=== PATIENT | male | born 1945 | race Caucasian/White ===

== ENCOUNTER 2016-03-29 20:50 | Emergency (ER) | payer OTHER ==
[~2016-03-29] VITALS: Ht 188 cm; Wt 112.9 kg
[~2016-03-29 20:50] MED LIST: ASPI-435 PO; BTP80 PO; CMD/25 PO; HYDR25TA4 PO; LISI-461 PO; MONT1TAB3 PO; MULT-506 PO; PRAV20TA PO; WARF5TAB90 PO
[2016-03-29 20:58] VITALS: TEMP 36.6; Ht 188 cm; Wt 112.9 kg
--- NOTE | 2016-03-29 21:25 | EMERGENCY ROOM VISIT NOTE ---
History Report prepared by Cade: Keerthi Osorio Under the Supervision of: Dr. David Boo M.D. First contact with patient: 21:04 Chief Complaint: SWELLING TO EXTREMITY Stated Complaint: PULLED RT BICEP, HEMATOMA/SWELLING NOT STOPPING History of Present Illness The patient is a 70 year old male who presents to the Emergency Room with complaints of worsening swelling to his right upper extremity for the past week. The patient states, "I tore the two heads of my bicep apart." He extended his arm and twisted to catch a falling cat and injured his arm. Since that time he has been having pain around his left shoulder. He was using the R.I.C.E. method, which seemed to be helping. The patient states that 3 nights ago he thinks that he slept on his arm funny because he has been having increased pain , swelling, and bruising since then. He is still using R.I.C.E. He denies any pain with movement of the arm and states that it is just the swelling of his arm that is painful and bothering him. He rates his current pain as a 2/10 in severity. He has full range of motion of the right wrist and hand. The patient is on Coumadin for a-fib. He has not had his INR checked since the incident occurred. Source of History: patient Onset: 1 week ago Position: arm (right) Symptom Intensity: 2/10 Quality: other (swelling) Timing: worsening Modifying Factors (Worsening): other (swelling) Modifying Factors (Relieving): other (R.I.C.E.) Review of Systems See HPI for pertinent positives & negatives. A total of 10 systems reviewed and were otherwise negative. Past Medical & Surgical Medical Problems: (1) ATRIAL FIBRILLATION (2) Dyslipidemia (3) History of asthma (4) History of cardioversion (5) History of gastroesophageal reflux (GERD) (6) History of renal stone (7) HYPERLIPIDEMIA NEC/NOS (8) HYPERTENSION NOS (9) Osteoarthritis of left hip Surgical Problems: (1) History of appendectomy (2) History of cataract surgery (3) History of rotator cuff surgery (4) History of tonsillectomy Family History No pertinent history stated. Social History Smoking Status: Never Smoker Alcohol Use: occasionally Marital Status: single Occupation Status: retired Current/Historical Medications Scheduled Hydrochlorothiazide (Hctz), 25 MG PO DAILY Lisinopril (Lisinopril), 10 MG PO QAM Montelukast Sodium (Singulair), 10 MG PO DAILY Pravastatin Sodium (Pravachol), 40 MG PO DAILY Sotalol HCl (Sotalol HCl), 80 MG PO BID Warfarin Sod (Coumadin), 2.5 MG PO 4XWK Warfarin Sodium (Coumadin), 5 MG PO 3XWK Allergies Coded Allergies: Shellfish (Verified Allergy, Unknown, 03/30/16) Physical Exam Vital Signs Date Time Temp Pulse Resp B/P Pulse Ox O2 Delivery O2 Flow Rate FiO2 03/30/16 00:48 82 22 122/86 93 03/29/16 23:03 81 16 143/92 95 Room Air 03/29/16 20:58 36.6 79 18 135/97 95 Room Air Physical Exam GENERAL: Patient is well appearing and in no acute distress. HEENT: No acute trauma, normocephalic atraumatic, mucous membranes moist, no nasal congestion, no scleral icterus. NECK: No stridor, no adenopathy, no meningismus, trachea is midline. LUNGS: No dyspnea. Clear to auscultation and equal bilaterally. No wheeze, no rhonchi. HEART: Regular rate and rhythm. No murmurs, rubs, gallops appreciated. ABDOMEN: Soft, nontender, bowel sounds positive, no masses appreciated, no peritonitis. BACK: No midline tenderness, no CVA tenderness EXTREMITIES: There is a large ecchymotic area of the right upper extremity from the shoulder to the elbow, tender to palpation with ball of biceps in the upper humerus, firm/tender though not consistent with compartment syndrome, decreased strength with flexion at the elbow but FROM. NEUROLOGIC: Alert and oriented, no acute motor or sensory deficits, no focal weakness, cranial nerves grossly intact. SKIN: No rash, no jaundice, no diaphoresis. Medical Decision & Procedures ER Provider Diagnostic Interpretation: Radiology results and stated below per my review and radiologist interpretation: US EXTREMITY: At the right medial upper arm, there is a 11.1 x 3.8 x 6.9 cm heterogeneous lesion with regions of hyperechogenicity, compatible with hematoma in the appropriate clinical setting, likely intramuscular. No evidence of deep vein thrombosis, but evaluation of brachial veins limited by hematoma. Radiologist: David Murrell MD Laboratory Results 03/29/16 21:30 03/29/16 21:30 Test 03/29/16 21:30 Red Blood Count 4.85 M/uL (4.7-6.1) Mean Corpuscular Volume 88.9 fL (80-100) Mean Corpuscular Hemoglobin 32.0 pg (25-34) Mean Corpuscular Hemoglobin Concent 36.0 g/dl (32-36) RDW Standard Deviation 42.3 fL (36.4-46.3) RDW Coefficient of Variation 13.1 % (11.5-14.5) Mean Platelet Volume 10.5 fL (7.4-10.4) Prothrombin Time 22.4 SECONDS (9.0-12.0) Prothromb Time International Ratio 2.0 (0.9-1.1) Activated Partial Thromboplast Time 40.3 SECONDS (21.0-31.0) Partial Thromboplastin Ratio 1.5 Anion Gap 12.0 mmol/L (3-11) Est Creatinine Clear Calc Drug Dose 92.8 ml/min Estimated GFR () 89.1 Estimated GFR (Non- 76.8 BUN/Creatinine Ratio 30.1 (10-20) Calcium Level 8.8 mg/dl (8.5-10.1) Total Creatine Kinase 152 U/L (39-308) Laboratory results as reviewed by me. Medications Administered Medications (Trade) Dose Ordered Sig/Vinny Route Start Time Stop Time Status Last Admin Dose Admin Phytonadione (Mephyton Tab) 2.5 mg NOW STAT PO 03/30/16 00:09 03/30/16 00:10 DC 03/30/16 00:25 2.5 MG ED Course 2103: The patient was evaluated in room B3B. A complete history and physical exam was performed. 0002: I reassessed the patient at this time. He is doing well. 0009: Phytonadione 2.5 mg PO 0038: I reassessed the patient at this time. He is feeling better and resting comfortably. I discussed the results and treatment plan with the patient. I answered all pertaining questions that he had. He expressed understanding and verbalized agreement. The patient will be discharged home. He will follow up with his hemmer automatic on Tuesday and will discuss how long he should be off of his Coumadin. He will set up follow-up as an outpatient with orthopedics. Medical Decision Very pleasant 70 yr old male who by history tore right biceps last week. Still with ROM thus not complete tear. On coumadin and continued to take even after tear thus bleeding in to right upper arm. Large hematoma noted on US though no evidence DVT. No evidence that this is infected at this time. It is not compartment syndrome. No n/v compromise distally. Afib is reason for coumadin thus with increasing hematoma I feel that we are at point where he needs to stop coumadin and I will begin reversal with low dose Vit K. He will follow up with Cards in 2 days already and I have asked Case Management to facilitate follow up with Ortho. I think urgent ortho reasonable as given the size of the hematoma I would like their input on if it may need to be drained, though with his currently elevated INR and no compartment syndrome I do not feel this is something that would need to happen this evening. If no further expansion of hematoma will likely not need surgery though would like their input non-the less. He notes previously seeing Dr Christianson for left shoulder issues. Impression Primary Impression: Traumatic hematoma of right upper arm Additional Impression: Tear of right biceps muscle Scribe Attestation The scribe's documentation has been prepared under my direction and personally reviewed by me in its entirety. I confirm that the note above accurately reflects all work, treatment, procedures, and medical decision making performed by me. Departure Information Dispostion Home / Self-Care Referrals Toro Gonzalez M.D.([facility]) (PCP) Willie Christianson, DO Patient Instructions [facility] Additional Instructions Follow up with Ortho in next 1 to 2 days. Follow up with your Doctor Podiatric Medicine on as planned and further discuss how long you should be off the Coumadin. Return immediately if pain, increased welling, inability to use arm, shortness of breath, fevers or other concerns. Stop your Coumadin until told you can restart by Orthopedics or Doctor Podiatric Medicine. Problem Qualifiers Primary Impression: Traumatic hematoma of right upper arm Encounter type: initial encounter Qualified Codes: S40.021A - Contusion of right upper arm, initial encounter Additional Impression: Tear of right biceps muscle Encounter type: initial encounter Qualified Codes: S46.111A - Strain of muscle, fascia and tendon of long head of biceps, right arm, initial encounter
[2016-03-29 21:48] LABS: HEMATOCRIT 43.1 % (42-52); MEAN CELL VOLUME 88.9 fL (80-100); MEAN PLATELET VOLUME 10.5 fL (7.4-10.4); PLATELET COUNT 196 K/uL (130-400); RED BLOOD COUNT 4.85 M/uL (4.7-6.1); WHITE BLOOD COUNT 11.01 K/uL (4.8-10.8)
[2016-03-29 21:52] LABS: PARTIAL THROMBOPLASTIN RATIO 1.5; PROTHROMBIN TIME (PATIENT) 22.4 SECONDS (9.0-12.0)
[2016-03-29 22:00] LABS: BUN/CREATININE RATIO 30.1 (10-20); CALCIUM 8.8 mg/dl (8.5-10.1); CREATININE 0.99 mg/dl (0.60-1.40); POTASSIUM 3.6 mmol/L (3.5-5.1)
[2016-03-30] MEDS ORDERED: PHYTONADIONE 5 MG TAB PO STA (00:09)
[2016-03-30 00:48] VITALS: BP 122/86; PULSE 82; O2SAT 93
--- NOTE | 2016-03-30 06:38 | DIAGNOSTIC IMAGING REPORT ---
RIGHT UPPER EXTREMITY ULTRASOUND CLINICAL HISTORY: Right upper arm hematoma. COMPARISON STUDY: No previous studies for comparison. FINDINGS: Sonography of the medial aspect of the right upper arm demonstrates a complex fluid collection that measures 11.1 x 3.8 x 6.9 cm. This contains no color flow. This is elliptical in configuration. There is adjacent simple appearing fluid. IMPRESSION: 11.1 x 3.8 x 6.9 cm complex fluid collection suggestive of a hematoma within the medial aspect of the right upper arm, likely intramuscular in location. This suggests muscular injury. Electronically signed by: Ayden Kirkland M.D. 03/30/2016 6:36 AM Dictated Date/Time: 03/30/2016 6:34 AM
--- NOTE | 2016-03-30 06:40 | DIAGNOSTIC IMAGING REPORT ---
ULTRASOUND VENOUS DOPPLER ULTRASOUND OF THE RIGHT UPPER EXTREMITY CLINICAL HISTORY: Right arm swelling. History of right arm hematoma. COMPARISON STUDY: No previous studies for comparison. FINDINGS: No intraluminal thrombus was visualized. The internal jugular, subclavian, axillary, cephalic, brachial, basilic, radial, and ulnar veins were patent. There is a complex collection within the upper arm, suspicious for hematoma. This will be described in a separate report. IMPRESSION: No evidence of right upper extremity DVT. Electronically signed by: Matthew Salazar M.D. 03/30/2016 6:38 AM Dictated Date/Time: 03/30/2016 6:37 AM
[2016-07-09] MEDS ORDERED: TAMS0.4C38 PO (14:33)
[2016-07-09] MEDS ORDERED: PHEN-876 PO (14:33)
== END 2016-03-30 00:48 | disposition home or self-care (01) ==
LOC: C.EDB 20:53
DX: S40.021A Contusion of right upper arm, initial encounter (principal); S46.201A Unspecified injury of muscle, fascia and tendon of other parts of biceps, right arm, initial encounter; X58.XXXA Exposure to other specified factors, initial encounter; I48.91 Unspecified atrial fibrillation; Z79.01 Long term (current) use of anticoagulants; E78.5 Hyperlipidemia, unspecified; Z90.89 Acquired absence of other organs; Z98.49 Cataract extraction status, unspecified eye; Z98.890 Other specified postprocedural states; Z91.013 Allergy to seafood

== ENCOUNTER 2016-07-05 06:57 | Emergency (ER) | payer OTHER ==
[~2016-07-05] VITALS: Ht 188 cm; Wt 114.3 kg
[~2016-07-05 06:57] MED LIST changes: -ASPI-435 PO; -MULT-506 PO
[2016-07-05 07:00] VITALS: TEMP 36.3; Ht 188 cm; Wt 114.3 kg
[2016-07-05] MEDS ORDERED: SODIUM CHLORIDE 0.9% 1000ML 1,000 ML IV STA (07:11)
--- NOTE | 2016-07-05 07:14 | EMERGENCY ROOM VISIT NOTE ---
History Report prepared by Cade: Raul Mtoa Under the Supervision of: Dr. David Boo M.D. First contact with patient: 07:05 Chief Complaint: KIDNEY STONE Stated Complaint: KIDNEY STONE,MAY HAVE PASSED ONE,STILL IN PAIN History of Present Illness The patient is a 71 year old male who presents to the Emergency Room with complaints of waxing and waning right sided flank pain that first began on Tuesday evening three days prior to arrival. The patient mentions that he also noticed some hematuria, Tuesday night. This has resolved at this point. The patient has a history of Kidney stones and notes that this feels very similar to those he has had in the past. His last stone presented three years ago. He is also currently complaining of nausea and diffuse abdominal discomfort. 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 A total of 10 systems reviewed and were otherwise negative. Past Medical & Surgical Medical Problems: (1) ATRIAL FIBRILLATION (2) Dyslipidemia (3) History of asthma (4) History of cardioversion (5) History of gastroesophageal reflux (GERD) (6) History of renal stone (7) HYPERLIPIDEMIA NEC/NOS (8) HYPERTENSION NOS (9) Osteoarthritis of left hip Surgical Problems: (1) History of appendectomy (2) History of cataract surgery (3) History of rotator cuff surgery (4) History of tonsillectomy Family History No pertinent family history secondary to age. Social History Smoking Status: Never Smoker Alcohol Use: occasionally Marital Status: single Occupation Status: retired Current/Historical Medications Scheduled Aspirin (Aspirin Ec), 81 MG PO DAILY Hydrochlorothiazide (Hctz), 25 MG PO DAILY Lisinopril (Lisinopril), 10 MG PO QAM Montelukast Sodium (Singulair), 10 MG PO DAILY Pravastatin Sodium (Pravachol), 40 MG PO DAILY Sotalol HCl (Sotalol HCl), 80 MG PO BID Tamsulosin Hcl (Flomax), 0.4 MG PO DAILY Scheduled PRN Oxycodone Immediate Rel Tab (Roxicodone Ir), 1-2 TAB PO Q4H PRN for Severe Pain Promethazine Hcl (Phenergan), 25 MG PO Q4H PRN for Nausea Allergies Coded Allergies: Shellfish (Verified Allergy, Unknown, 07/05/16) Physical Exam Vital Signs Date Time Temp Pulse Resp B/P Pulse Ox O2 Delivery O2 Flow Rate FiO2 07/05/16 08:41 52 20 170/98 95 07/05/16 07:00 36.3 62 17 155/94 95 Room Air Physical Exam GENERAL: Patient is uncomfortable appearing and in mild distress. HEENT: No acute trauma, normocephalic atraumatic, mucous membranes Dry, no nasal congestion, no scleral icterus. NECK: No stridor, no adenopathy, no meningismus, trachea is midline. LUNGS: No dyspnea. Clear to auscultation and equal bilaterally. No wheeze, no rhonchi. HEART: Regular rate and rhythm. No murmurs, rubs, gallops appreciated. ABDOMEN: Soft, nontender, bowel sounds positive, no masses appreciated, no peritonitis. BACK: No midline tenderness, no CVA tenderness EXTREMITIES: Normal motion all extremities, no cyanosis, no edema. NEUROLOGIC: Alert and oriented, no acute motor or sensory deficits, no focal weakness, cranial nerves grossly intact. SKIN: No rash, no jaundice, no diaphoresis. Medical Decision & Procedures ER Provider Diagnostic Interpretation: Radiology results and stated below per my review and radiologist interpretation: ABDOMEN AND PELVIS CT WITHOUT CONTRAST CT DOSE: 1216.56 mGy.cm HISTORY: right flank pain TECHNIQUE: Multiaxial CT images of the abdomen and pelvis were performed without the use of intravenous and oral contrast according to the standard department stone protocol. COMPARISON STUDY: Abdomen and pelvis CT 03/30/2012. FINDINGS: A punctate stone within the lower pole of the right kidney. A 4 mm stone within the lower pole of the left kidney. Mild bilateral perinephric edema. No left-sided hydronephrosis. Bilateral renal hypodense lesions are incompletely characterized on this noncontrast study but favor cysts. Dominant lesion within the right kidney measures 2.7 cm and within the left kidney measures 3 cm. Mild to moderate right hydroureteronephrosis. There are 2 adjacent obstructing stones within the distal left ureter at the level of the iliac vessels. These both measure 7 mm. The bladder is unremarkable. The prostate gland is mildly enlarged. Left iliopsoas atrophy. Degenerative changes within the lower lumbar spine. The lung bases are clear. Left total hip arthroplasty. The unenhanced liver, spleen, gallbladder, pancreas, and adrenal glands are unremarkable. Small fat-containing umbilical hernia, unchanged. Colonic diverticulosis. Suboptimal evaluation for bowel pathology due to the lack of intravenous and oral contrast. However, there is no definite bowel wall thickening or obstruction. Prior appendectomy. IMPRESSION: 1. There are 2 adjacent 7 mm stones within the distal right ureter resulting in mild to moderate right hydroureteronephrosis. 2. Bilateral nephrolithiasis. 3. Additional findings as described above. Electronically signed by: Roverto Higginbotham M.D. 07/05/2016 8:05 AM Dictated Date/Time: 07/05/2016 7:58 AM Laboratory Results 07/05/16 07:25 Red Blood Count 5.47, Mean Corpuscular Volume 90.1, Mean Corpuscular Hemoglobin 31.4, Mean Corpuscular Hemoglobin Concent 34.9, Mean Platelet Volume 10.3, Neutrophils (%) (Auto) 62.9, Lymphocytes (%) (Auto) 18.6, Monocytes (%) (Auto) 12.8, Eosinophils (%) (Auto) 5.0, Basophils (%) (Auto) 0.5, Neutrophils # (Auto ) 6.96, Lymphocytes # (Auto) 2.06, Monocytes # (Auto) 1.41, Eosinophils # (Auto ) 0.55, Basophils # (Auto) 0.05 07/05/16 07:25 Test 07/05/16 07:16 07/05/16 07:25 Urine Color YELLOW Urine Appearance CLEAR (CLEAR) Urine pH 5.0 (4.5-7.5) Urine Specific [place] 1.020 (1.000-1.030) Urine Protein NEG (NEG) Urine Glucose (UA) NEG (NEG) Urine Ketones NEG (NEG) Urine Occult Blood 3+ (NEG) Urine Nitrite NEG (NEG) Urine Bilirubin NEG (NEG) Urine Urobilinogen NEG (NEG) Urine Leukocyte Esterase NEG (NEG) Urine WBC (Auto) 1-5 /hpf (0-5) Urine RBC (Auto) 5-10 /hpf (0-4) Urine Hyaline Casts (Auto) 1-5 /lpf (0-5) Urine Epithelial Cells (Auto) 0-5 /lpf (0-5) Urine Bacteria (Auto) NEG (NEG) White Blood Count 11.05 K/uL (4.8-10.8) Red Blood Count 5.47 M/uL (4.7-6.1) Hemoglobin 17.2 g/dL (14.0-18.0) Hematocrit 49.3 % (42-52) Mean Corpuscular Volume 90.1 fL (80-100) Mean Corpuscular Hemoglobin 31.4 pg (25-34) Mean Corpuscular Hemoglobin Concent 34.9 g/dl (32-36) Platelet Count 156 K/uL (130-400) Mean Platelet Volume 10.3 fL (7.4-10.4) Neutrophils (%) (Auto) 62.9 % Lymphocytes (%) (Auto) 18.6 % Monocytes (%) (Auto) 12.8 % Eosinophils (%) (Auto) 5.0 % Basophils (%) (Auto) 0.5 % Neutrophils # (Auto) 6.96 K/uL (1.4-6.5) Lymphocytes # (Auto) 2.06 K/uL (1.2-3.4) Monocytes # (Auto) 1.41 K/uL (0.11-0.59) Eosinophils # (Auto) 0.55 K/uL (0-0.5) Basophils # (Auto) 0.05 K/uL (0-0.2) RDW Standard Deviation 42.1 fL (36.4-46.3) RDW Coefficient of Variation 12.7 % (11.5-14.5) Immature Granulocyte % (Auto) 0.2 % Immature Granulocyte # (Auto) 0.02 K/uL (0.00-0.02) Anion Gap 8.0 mmol/L (3-11) Est Creatinine Clear Calc Drug Dose 50.6 ml/min Estimated GFR () 42.9 Estimated GFR (Non- 37.0 BUN/Creatinine Ratio 15.0 (10-20) Calcium Level 8.8 mg/dl (8.5-10.1) Total Bilirubin 0.5 mg/dl (0.2-1) Direct Bilirubin < 0.1 mg/dl (0-0.2) Aspartate Amino Transf (AST/SGOT) 14 U/L (15-37) Alanine Aminotransferase (ALT/SGPT) 23 U/L (12-78) Alkaline Phosphatase 82 U/L (45-117) Total Protein 7.0 gm/dl (6.4-8.2) Albumin 3.4 gm/dl (3.4-5.0) Lipase 124 U/L (73-393) Laboratory results as reviewed by me. Medications Administered Medications (Trade) Dose Ordered Sig/Vinny Route Start Time Stop Time Status Last Admin Dose Admin Sodium Chloride (Nss 1000ml) 1,000 ml @ 999 mls/hr Q1H1M STAT IV 07/05/16 07:11 07/05/16 08:11 DC 07/05/16 07:30 999 MLS/HR Ketorolac Tromethamine (Toradol Inj) 30 mg NOW STAT IV 07/05/16 07:34 07/05/16 07:35 DC 07/05/16 07:38 30 MG Oxycodone HCl (Roxicodone Immediate Rel 5MG Home Pack) 1 homepack UD ONCE PO 07/05/16 08:30 07/05/16 08:31 DC 07/05/16 08:32 1 HOMEPACK Tamsulosin HCl (Flomax Cap) 0.4 mg NOW ONCE PO 07/05/16 08:30 07/05/16 08:31 DC 07/05/16 08:31 0.4 MG Promethazine HCl (Phenergan 25MG Home Pack) 1 homepack UD ONCE PO 07/05/16 08:30 07/05/16 08:31 DC 07/05/16 08:31 1 HOMEPACK ED Course 0706: The patient was evaluated in room B2. A complete history and physical exam was performed. 0711: Ordered Sodium Chloride 1000 mL @ 999 mL/hr IV. 0734: Ordered Toradol 30 mg IV. 0817: I reevaluated the patient at this time, and I discussed the option of admission and inpatient stay with him. He adamantly refuses this admission. The patient will be discharged home with medication. 0830: Ordered Promethazine HCl 1 homepack PO, Flomax 0.4 mg PO, Zofran 1 homepack PO, Oxycodone 1 homepack PO. Medical Decision Blood pressure screening: Patient was found to have an elevated blood pressure and was referred to their primary doctor for recheck and further treatment. Medication Reconciliation: I attest that I have personally reviewed the patient 's current medication list. Differential: Renal Colic, Pyelonephritis, Hydronephrosis, Appendicitis, Diverticulitis, Retroperitoneal Bleed/Infection, Aortic Pathology, MSK, Neurologic Pathology, amongst other pathologies entertained. Pleasant 71 yr old male with right flank pain for last few days and history of stones. Uncomfortable and given IV toradol as driving and wanted non-narcotic. Pain vastly improved. Went to CT given distant history of stones and persistent symptoms last few days. CT reveals 2 distal 7 mm ureteral stones with mild/mod hydronephrosis. No evidence of urinary infection. He is feeling well. Of concern is elevated Cr, especially given I gave him Toradol. We discussed fact that Toradol, along with other NSAIDs can worsen renal insufficiency. I have advised brining in for hydration/evaluation however he is not interested in this. Aware he must remain very well hydrated and must follow up with PCP later this week for repeat labs/evaluation. Advised he follow up with his Urologist (DR Gaona) who he has previously seen. Will try Flomax though discussed possibility this may not improve. Reviewed symptoms requiring return. Stressed no further NSAIDs. Impression Primary Impression: Right ureteral calculus Additional Impressions: Hydronephrosis, right Acute renal insufficiency Scribe Attestation The scribe's documentation has been prepared under my direction and personally reviewed by me in its entirety. I confirm that the note above accurately reflects all work, treatment, procedures, and medical decision making performed by me. Departure Information Dispostion Home / Self-Care Prescriptions Promethazine Hcl (Phenergan) 25 Mg Tab 25 MG PO Q4H Y for Nausea, #20 TAB Prov: David Boo M.D. 07/05/16 Oxycodone Immediate Rel Tab (ROXICODONE IR) 5 Mg Tab 1-2 TAB PO Q4H Y for Severe Pain, #20 TAB Prov: David Boo M.D. 07/05/16 Tamsulosin Hcl (FLOMAX) 0.4 Mg Cap 0.4 MG PO DAILY, #10 CAP Prov: David Boo M.D. 07/05/16 Referrals Toro Gonzalez M.D. ([facility]) (PCP) Patient Instructions Kidney Stones - [facility], [facility] Additional Instructions You must follow up with your primary care provider to have your kidney function rechecked as it was elevated today. This is likely a combination of dehydration , kidney stone and NSAID use. Do not take any more NSAID medications (advil, aleve, motrin, ibuprofen, naproxen, etc). Keep well hydrated! This is important. You have received a narcotic pain medication prescription. These medications may cause drowsiness and should not be used with other sedative medications. Do not drive, drink alcohol, perform dangerous activities, nor make important decisions after taking these medications. custodial use or inappropriate use may lead to addiction. Your blood pressure was elevated during this visit. This is quite common in many people who are being evaluated in the Emergency Department for many reasons. However, it is important that you have your Primary Care Provider recheck your blood pressure and discuss whether treatment will be needed. custodial elevated blood pressure can lead to strokes, heart attacks, kidney failure amongst other medical issues. If you develop severe headaches, chest pain, weakness in arms or legs, or other concerning symptoms call 911. Problem Qualifiers
[2016-07-05] MEDS ORDERED: KETOROLAC TROMETHAMINE 30 MG/ML VIAL IV STA (07:34)
[2016-07-05 07:37] LABS: BASO % 0.5 %; BASO ABS # 0.05 K/uL (0-0.2); COMPLETE YES; HEMATOCRIT 49.3 % (42-52); IG% 0.2 %; LYMPH % 18.6 %; LYMPH ABS # 2.06 K/uL (1.2-3.4); MEAN CELL VOLUME 90.1 fL (80-100); MEAN CORPUSCULAR HEMOGLOBIN 31.4 pg (25-34); MEAN CORPUSCULAR HGB CONC 34.9 g/dl (32-36); MEAN PLATELET VOLUME 10.3 fL (7.4-10.4); MONO % 12.8 %; NEUT % 62.9 %; PLATELET COUNT 156 K/uL (130-400); RED BLOOD COUNT 5.47 M/uL (4.7-6.1); WHITE BLOOD COUNT 11.05 K/uL (4.8-10.8)
[2016-07-05 07:44] LABS: URINE APPEARANCE CLEAR (CLEAR); URINE BILIRUBIN NEG (NEG); URINE COLOR YELLOW; URINE EPITHELIAL CELL AUTO 0-5 /lpf (0-5); URINE NITRITE NEG (NEG); UROBILINOGEN NEG (NEG); ZZUR CULT IF INDIC CLEAN CATCH NO
[2016-07-05 07:52] LABS: ALT/SGPT 23 U/L (12-78); AST/SGOT 14 U/L (15-37); BLOOD UREA NITROGEN 27 mg/dl (7-18); CALCIUM 8.8 mg/dl (8.5-10.1); CARBON DIOXIDE 27 mmol/L (21-32); CHLORIDE 103 mmol/L (98-107); GLUCOSE 166 mg/dl (70-99); POTASSIUM 3.8 mmol/L (3.5-5.1); SODIUM 138 mmol/L (136-145)
[2016-07-05 07:55] LABS: MANUAL MICROSCOPIC REQUIRED? NO; REVIEW REQ? NO
[2016-07-05 07:55] LABS: ALKALINE PHOSPHATASE 82 U/L (45-117)
[2016-07-05] MEDS ORDERED: ASPI81TA28 PO (07:58)
--- NOTE | 2016-07-05 08:07 | DIAGNOSTIC IMAGING REPORT ---
ABDOMEN AND PELVIS CT WITHOUT CONTRAST CT DOSE: 1216.56 mGy.cm HISTORY: right flank pain TECHNIQUE: Multiaxial CT images of the abdomen and pelvis were performed without the use of intravenous and oral contrast according to the standard department stone protocol. COMPARISON STUDY: Abdomen and pelvis CT 03/30/2012. FINDINGS: A punctate stone within the lower pole of the right kidney. A 4 mm stone within the lower pole of the left kidney. Mild bilateral perinephric edema. No left-sided hydronephrosis. Bilateral renal hypodense lesions are incompletely characterized on this noncontrast study but favor cysts. Dominant lesion within the right kidney measures 2.7 cm and within the left kidney measures 3 cm. Mild to moderate right hydroureteronephrosis. There are 2 adjacent obstructing stones within the distal left ureter at the level of the iliac vessels. These both measure 7 mm. The bladder is unremarkable. The prostate gland is mildly enlarged. Left iliopsoas atrophy. Degenerative changes within the lower lumbar spine. The lung bases are clear. Left total hip arthroplasty. The unenhanced liver, spleen, gallbladder, pancreas, and adrenal glands are unremarkable. Small fat-containing umbilical hernia, unchanged. Colonic diverticulosis. Suboptimal evaluation for bowel pathology due to the lack of intravenous and oral contrast. However, there is no definite bowel wall thickening or obstruction. Prior appendectomy. IMPRESSION: 1. There are 2 adjacent 7 mm stones within the distal right ureter resulting in mild to moderate right hydroureteronephrosis. 2. Bilateral nephrolithiasis. 3. Additional findings as described above. Electronically signed by: Roverto Higginbotham M.D. 07/05/2016 8:05 AM Dictated Date/Time: 07/05/2016 7:58 AM
[2016-07-05] MEDS ORDERED: TAMS0.4C38 PO (08:25)
[2016-07-05] MEDS ORDERED: PROM25TA9 PO (08:25)
[2016-07-05] MEDS ORDERED: OXYC1TAB3 PO (08:25)
[2016-07-05] MEDS ORDERED: ONDANSETRON HOME PACK 4MG OD TAB PO ONE (08:30)
[2016-07-05] MEDS ORDERED: OXYCODONE IR HOME PACK PO ONE (08:30)
[2016-07-05] MEDS ORDERED: TAMSULOSIN HCL 0.4 MG CAP PO ONE (08:30)
[2016-07-05] MEDS ORDERED: PHENERGAN 25MG HOMEPACK PO ONE (08:30)
[2016-07-05 08:41] VITALS: BP 170/98; PULSE 52; O2SAT 95
[2016-07-09] MEDS ORDERED: PHEN-876 PO (14:33)
[2016-07-09] MEDS ORDERED: TAMS0.4C38 PO (14:33)
== END 2016-07-05 08:43 | disposition home or self-care (01) ==
LOC: C.EDB 06:58
DX: N13.2 Hydronephrosis with renal and ureteral calculous obstruction (principal); N28.9 Disorder of kidney and ureter, unspecified; E78.5 Hyperlipidemia, unspecified; I48.91 Unspecified atrial fibrillation; I10 Essential (primary) hypertension; M16.12 Unilateral primary osteoarthritis, left hip; J45.909 Unspecified asthma, uncomplicated; Z87.442 Personal history of urinary calculi; Z90.89 Acquired absence of other organs; Z98.49 Cataract extraction status, unspecified eye; Z98.890 Other specified postprocedural states; Z79.82 Long term (current) use of aspirin; Z79.899 Other long term (current) drug therapy

== ENCOUNTER 2016-07-08 05:46 | Inpatient (IN) | payer OTHER ==
[2016-07-08] VITALS (8 sets, daily range): BP systolic 129–168; BP diastolic 74–102; PULSE 52–66; TEMP 36.4–37; O2SAT 90–96; Ht 188 cm; Wt 113.7 kg
[~2016-07-08] VITALS: Ht 188 cm; Wt 113.7 kg
[~2016-07-08 05:46] MED LIST changes: +ASPI81TA28 PO; -CMD/25 PO; +OXYC1TAB3 PO; +PROM25TA9 PO; +TAMS0.4C38 PO; -WARF5TAB90 PO
[2016-07-08] MEDS ORDERED: CEFAZOLIN IV 2,000 MG/60 ML D5W IV SCH (06:00)
[2016-07-08] MEDS ORDERED: SODIUM CHLORIDE 0.9% 1000ML 1,000 ML IV STA (06:05)
[2016-07-08] MEDS ORDERED: ONDANSETRON INJ 2 MG/ML 2 ML VIAL IV STA (06:05)
[2016-07-08] MEDS ORDERED: HYDROmorphone INJ 0.5 MG/0.5 ML SYR IV STA (06:05)
[2016-07-08] MEDS ORDERED: LISI-461 PO (06:09)
--- NOTE | 2016-07-08 06:11 | EMERGENCY ROOM VISIT NOTE ---
History Report prepared by Cade: Hudson Catherine Under the Supervision of: Dr. Ruben Márquez D.O. First contact with patient: 05:59 Chief Complaint: KIDNEY STONE Stated Complaint: KIDNEY STONES History of Present Illness The patient is a 71 year old male who presents to the Emergency Room with complaints of a kidney stone that began recently. He has a recent medical history of 2 7 mm kidney stones in his right ureter. He states that his abdominal pain has been in different places, but always on the right side. He rates his pain a 5/10 in severity. He has been taking Ibuprofen for the pain because Oxycodone makes him feel "funny." He is still making urine. He is also nauseated. Source of History: patient Onset: recently Position: other () Symptom Intensity: 5/10 Quality: sharp Timing: constant Associated Symptoms: + nausea, + abdominal pain Note: He is still making urine. He denies any other symptoms. Review of Systems See HPI for pertinent positives and negatives. A total of ten systems were reviewed and were otherwise negative. Past Medical & Surgical Medical Problems: (1) ATRIAL FIBRILLATION (2) Dyslipidemia (3) History of asthma (4) History of cardioversion (5) History of gastroesophageal reflux (GERD) (6) History of renal stone (7) HYPERLIPIDEMIA NEC/NOS (8) HYPERTENSION NOS (9) Osteoarthritis of left hip Surgical Problems: (1) History of appendectomy (2) History of cataract surgery (3) History of rotator cuff surgery (4) History of tonsillectomy Family History Omitted secondary to age. Social History Smoking Status: Never Smoker Smokeless Tobacco Use: No Alcohol Use: occasionally Drug Use: none Marital Status: single Occupation Status: retired Current/Historical Medications Scheduled Aspirin (Aspirin Ec), 81 MG PO DAILY Hydrochlorothiazide (Hctz), 25 MG PO DAILY Lisinopril (Zestril), 10 MG PO DAILY Montelukast Sodium (Singulair), 10 MG PO DAILY Pravastatin (Pravachol ), 40 MG PO DAILY Sotalol Hcl (Sotalol Hcl), 80 MG PO BID Tamsulosin Hcl (Flomax), 0.4 MG PO DAILY Scheduled PRN Oxycodone Ir (Roxicodone Ir), 5-10 MG PO Q4H PRN for Severe Pain Promethazine Hcl (Phenergan), 25 MG PO Q4H PRN for Nausea Allergies Coded Allergies: Shellfish (Verified Allergy, Unknown, 07/08/16) Physical Exam Vital Signs Date Time Temp Pulse Resp B/P (MAP) Pulse Ox O2 Delivery O2 Flow Rate FiO2 07/08/16 05:50 36.8 68 16 134/87 92 Room Air Physical Exam GENERAL: Awake, alert, well-appearing, in no distress HENT: Normocephalic, atraumatic. Oropharynx unremarkable. EYES: Normal conjunctiva. Sclera non-icteric. NECK: Supple. No nuchal rigidity. FROM. No JVD. RESPIRATORY: Clear to auscultation. CARDIAC: Regular rate, normal rhythm. Extremities warm and well perfused. Pulses equal. ABDOMEN: Soft, non-distended. No tenderness to palpation. No rebound or guarding. No masses. RECTAL: Deferred. MUSCULOSKELETAL: Chest examination reveals no tenderness. The back is symmetrical on inspection without obvious abnormality. Right costovertebral angle tenderness. No joint edema. LOWER EXTREMITIES: Calves are equal size bilaterally and non-tender. No edema. No discoloration. NEURO: Normal sensorium. No sensory or motor deficits noted. SKIN: No rash or jaundice noted. Medical Decision & Procedures Laboratory Results Test 07/08/16 06:05 Laboratory results reviewed by me Medications Administered Medications (Trade) Dose Ordered Sig/Vinny Route Start Time Stop Time Status Last Admin Dose Admin Sodium Chloride 1,000 ml @ 999 mls/hr Q1H1M STAT IV 07/08/16 06:05 07/08/16 07:05 07/08/16 06:14 999 MLS/HR Hydromorphone HCl (Dilaudid Inj) 0.5 mg NOW STAT IV 07/08/16 06:05 07/08/16 06:07 DC 07/08/16 06:13 0.5 MG Ondansetron HCl (Zofran Inj) 4 mg NOW STAT IV 07/08/16 06:05 07/08/16 06:07 DC 07/08/16 06:14 4 MG ED Course 0559: The patient was evaluated in room B10. A complete history and physical exam was performed. 0605: Ordered Zofran Inj 4 mg IV, Dilaudid Inj 0.5 mg IV, Sodium Chloride 1000 ml @ 999 mls/hr IV 0613: Upon reexamination, the patient was resting. I discussed the test results and treatment plan with him. The patient will be evaluated by Dr. Favian Doty Hospitalist, for further management. Medical Decision Differential diagnoses include but are not limited to; renal colic, ureterolithiasis, intractable pain, and renal insufficiency. Patient's prior evaluation was reviewed by me, patient's creatinine has elevated to 1.8 since 3 months ago patient has to 7 mm stones present and has continued pain. Case was discussed with the hospitalist for admission at 6:20 AM Medication Reconciliation: I attest that I have personally reviewed the patient' s current medication list. Blood pressure screening: Patient was found to have normal blood pressure on screening and does not require follow-up. Consults Time Called: [phone] Consulting Physician: Dr. Favian Doty [facility] Returned Call: 06 He will be evaluating the patient for further management and care. Impression Primary Impression: Ureterolithiasis Additional Impression: Acute renal insufficiency Scribe Attestation The scribe's documentation has been prepared under my direction and personally reviewed by me in its entirety. I confirm that the note above accurately reflects all work, treatment, procedures, and medical decision making performed by me. Departure Information Dispostion Being Evaluated By Hospitalist Referrals Toro Gonzalez M.D.(MATA) (PCP) Patient Instructions [facility] Problem Qualifiers
[2016-07-08] MEDS ORDERED: OXYC1TAB3 PO (06:12)
[2016-07-08] MEDS ORDERED: PROM25TA9 PO (06:13)
[2016-07-08] MEDS ORDERED: PRAV20TA PO (06:13)
[2016-07-08] MEDS ORDERED: SOTA80TA PO (06:16)
[2016-07-08] MEDS ORDERED: TAMS0.4C38 PO (06:16)
[2016-07-08 06:25] LABS: BASO % 0.3 %; BASO ABS # 0.04 K/uL (0-0.2); COMPLETE YES; HEMATOCRIT 46.8 % (42-52); IG% 0.2 %; LYMPH % 12.7 %; LYMPH ABS # 1.56 K/uL (1.2-3.4); MEAN CELL VOLUME 87.5 fL (80-100); MEAN CORPUSCULAR HEMOGLOBIN 31.2 pg (25-34); MEAN CORPUSCULAR HGB CONC 35.7 g/dl (32-36); MEAN PLATELET VOLUME 9.8 fL (7.4-10.4); MONO % 13.4 %; NEUT % 69.4 %; PLATELET COUNT 188 K/uL (130-400); RED BLOOD COUNT 5.35 M/uL (4.7-6.1); WHITE BLOOD COUNT 12.27 K/uL (4.8-10.8)
[2016-07-08 06:31] LABS: URINE APPEARANCE CLEAR (CLEAR); URINE BILIRUBIN NEG (NEG); URINE COLOR YELLOW; URINE NITRITE NEG (NEG); UROBILINOGEN NEG (NEG)
[2016-07-08 06:36] LABS: MANUAL MICROSCOPIC REQUIRED? NO; REVIEW REQ? NO
[2016-07-08 06:41] LABS: BUN/CREATININE RATIO 16.1 (10-20); CALCIUM 8.7 mg/dl (8.5-10.1); CREATININE 1.8 mg/dl (0.60-1.40); POTASSIUM 3.9 mmol/L (3.5-5.1)
[2016-07-08] MEDS ORDERED: ACETAMINOPHEN 325 MG TAB PO PRN (07:00)
[2016-07-08] MEDS ORDERED: HYDROmorphone INJ 1 MG/ML SYR IV PRN (07:00)
[2016-07-08] MEDS ORDERED: ONDANSETRON INJ 2 MG/ML 2 ML VIAL IV PRN ×2 (07:00→17:45)
[2016-07-08] MEDS ORDERED: OXYCODONE/ACETAMINOPHEN 5-325 TAB PO PRN (07:00)
[2016-07-08 07:20] LABS: PARTIAL THROMBOPLASTIN RATIO 1.2
[2016-07-08] MEDS: SODIUM CHLORIDE 0.9% 1000ML 1,000 ML IV SCH ×2 (08:20→21:18)
--- NOTE | 2016-07-08 08:23 | HISTORY & PHYSICAL EXAMINATION ---
DATE OF ADMISSION: 07/08/2016 PRIMARY CARE PHYSICIAN: Dr. Gonzalez. CHIEF COMPLAINT: Kidney stone. HISTORY OF PRESENT ILLNESS: Hx obtained from px and records. Medical history significant for urolithiasis, hypertension, hyperlipidemia, Afib status post cardioversion on aspirin as per records, GERD. Recent confinement under Cardiology service last June 2014 for Afib. The patient underwent cardioversion and antiarrhythmic loading with sotalol. Last few days patient noted achy hyogastric pain going to the right flank similar to kidney stones in the past, no hematuria, no fever, no chills. Seen at the ER a few days ago. CAT scan showed showed 2 adjacent 7 mm stones distal right ureter resulting in [id number] hydronephrosis. serum crea 1.8. Patient offered admission but opted to go home. Patient prescribed oxycodone, tamsulosin. Intractable pain despite medication. No stone passage. No fever/chills/hematuria. Patient returned to the Emergency Room. MEDICAL HISTORY: As above. SURGERIES: Tonsillectomy, shoulder surgery, knee surgery, cataract surgery, cholecystectomy, appendectomy. HOME MEDICATIONS: Sotalol, aspirin, montelukast, lisinopril, pravastatin ALLERGIES: DUST MITE, RAGWEED, SHELLFISH. FAMILY HISTORY: Heart disease. 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 REVIEW OF SYSTEMS: As per HPI, all other ROS negative. PHYSICAL EXAMINATION: VITAL SIGNS: Blood pressure was noted to be 124/80, pulse rate 80, RR 18, sats 98 on room air. GENERAL: Noted to be slightly uncomfortable, no resp distress. SKIN: Normal color. HEAD, EYES, EARS, NOSE, AND THROAT: [place] palpebral conjunctivae. Dry mucosa. NECK: No JVD. supple CHEST: Clear to auscultation. HEART: Bradycardic. ABDOMEN: Minimal hypogastric. tenderness EXTREMITIES: No edema. no tenderness NEUROLOGIC: No gross focality. LABORATORY DATA: Hemoglobin was noted to be 16, hematocrit 46, white cell count 12, platelets 188. Sodium 140, chloride 100, CO2 29, BUN 29, creatinine 1.8, glucose 103. UA trace occult blood, negative ketones, WBc 1-5, hyaline casts 1-5. ASSESSMENT AND PLAN: 1. Acute renal failure, obstructive uropathy recurrent kidney stones failed outpatient treatment. No sepsis. 2. Hypertension, stable 3. paroxysmal atrial fibrillation. px NSR but on the bradycardic side on sotalol and aspirin . 4. Hyperlipidemia as per records. GMF continue IVF hold ACEI, diuretics until crea at baseline continue Flomax. Urology consult. RE obstructive uropathy (Patient known to Dr. Gaona.) DVT prophylaxis, Heparin subQ. FULL CODE. MTDD
[2016-07-08] MEDS: HEPARIN SOD 5000 UNIT/0.5 ML CARP SQ SCH ×3 (09:00→21:37)
[2016-07-08] MEDS: TAMSULOSIN HCL 0.4 MG CAP PO SCH (09:22)
[2016-07-08] MEDS: SOTALOL HCL 80 MG TAB PO SCH ×2 (09:22→21:19)
[2016-07-08] MEDS: ASPIRIN 81 MG ECTAB PO SCH (09:22)
[2016-07-08] MEDS: PRAVASTATIN SOD 40 MG TAB PO SCH (09:22)
--- NOTE | 2016-07-08 09:31 | Urology Consultation ---
History General Date of Service: Jul 08, 2016. Chief Complaint: stones Primary Care Physician: Toro Gonzalez M.D.(MATA) Pt seen a urologist before?: Yes If yes, why?: stones History of Present Illness I am asked by Dr South to evaluate and treat ureteral stones. He has bounced back to ER with pain. He had ct scan 2 days ago and has two distal ureteral stones with hydro each about 6-7mm. They are not visible on the stained glass artist so he likely has uric acid stones again. He has not made any progress on stones with pain at about McBurney's point. He has nausea no emesis no fever Pain meds working well for him. His renal function deteriorated with a cr of 1.8 Imaging Imaging: CT Laboratory Results Past 24 Hours Test 07/08/16 06:12 Range/Units White Blood Count 12.27 4.8-10.8 K/uL Red Blood Count 5.35 4.7-6.1 M/uL Hemoglobin 16.7 14.0-18.0 g/dL Hematocrit 46.8 42-52 % Mean Corpuscular Volume 87.5 80-100 fL Mean Corpuscular Hemoglobin 31.2 25-34 pg Mean Corpuscular Hemoglobin Concent 35.7 32-36 g/dl Platelet Count 188 130-400 K/uL Mean Platelet Volume 9.8 7.4-10.4 fL Neutrophils (%) (Auto) 69.4 % Lymphocytes (%) (Auto) 12.7 % Monocytes (%) (Auto) 13.4 % Eosinophils (%) (Auto) 4.0 % Basophils (%) (Auto) 0.3 % Neutrophils # (Auto) 8.50 1.4-6.5 K/uL Lymphocytes # (Auto) 1.56 1.2-3.4 K/uL Monocytes # (Auto) 1.65 0.11-0.59 K/uL Eosinophils # (Auto) 0.49 0-0.5 K/uL Basophils # (Auto) 0.04 0-0.2 K/uL RDW Standard Deviation 39.4 36.4-46.3 fL RDW Coefficient of Variation 12.3 11.5-14.5 % Immature Granulocyte % (Auto) 0.2 % Immature Granulocyte # (Auto) 0.03 0.00-0.02 K/uL Prothrombin Time 11.0 9.0-12.0 SECONDS Prothromb Time International Ratio 1.0 0.9-1.1 Activated Partial Thromboplast Time 31.6 21.0-31.0 SECONDS Partial Thromboplastin Ratio 1.2 Urine Color YELLOW Urine Appearance CLEAR CLEAR Urine pH 6.0 4.5-7.5 Urine Specific [place] 1.020 1.000-1.030 Urine Protein NEG NEG Urine Glucose (UA) NEG NEG Urine Ketones NEG NEG Urine Occult Blood TRACE NEG Urine Nitrite NEG NEG Urine Bilirubin NEG NEG Urine Urobilinogen NEG NEG Urine Leukocyte Esterase NEG NEG Urine WBC (Auto) 1-5 0-5 /hpf Urine RBC (Auto) 0-4 0-4 /hpf Urine Hyaline Casts (Auto) 1-5 0-5 /lpf Urine Epithelial Cells (Auto) 5-10 0-5 /lpf Urine Bacteria (Auto) NEG NEG Sodium Level 137 136-145 mmol/L Potassium Level 3.9 3.5-5.1 mmol/L Chloride Level 100 98-107 mmol/L Carbon Dioxide Level 29 21-32 mmol/L Anion Gap 8.0 3-11 mmol/L Blood Urea Nitrogen 29 7-18 mg/dl Creatinine 1.80 0.60-1.40 mg/dl Est Creatinine Clear Calc Drug Dose 50.5 ml/min Estimated GFR () 42.9 Estimated GFR (Non- 37.0 BUN/Creatinine Ratio 16.1 10-20 Random Glucose 103 70-99 mg/dl Calcium Level 8.7 8.5-10.1 mg/dl Magnesium Level 2.0 1.8-2.4 mg/dl Total Bilirubin 0.9 0.2-1 mg/dl Direct Bilirubin 0.2 0-0.2 mg/dl Aspartate Amino Transf (AST/SGOT) 17 15-37 U/L Alanine Aminotransferase (ALT/SGPT) 20 12-78 U/L Alkaline Phosphatase 63 45-117 U/L Total Protein 7.4 6.4-8.2 gm/dl Albumin 3.3 3.4-5.0 gm/dl Microbiology Results 07/08/16 Urine Culture, Received Pending Labs were reviewed and are within normal limits unless listed below. Labs are available in the chart and at [facility] Problem List Medical Problems: (1) Acute renal insufficiency Status: Acute (2) Acute renal insufficiency Status: Acute (3) Hydronephrosis, right Status: Acute (4) Right ureteral calculus Status: Acute (5) Tear of right biceps muscle Status: Acute (6) Traumatic hematoma of right upper arm Status: Acute (7) Ureterolithiasis Status: Acute Past History A Fib, arrhythmia, asthma, high cholesterol, hypertension, kidney stones Past Surgical History: orthopedic surgery (left hip replacement, appy, tonsils , shoulder surgery) Family History brother has arrhythmia and kidney stones Social History Hx Tobacco Use In Past Year?: No Smoking: non-smoker Alcohol: occasional (weekly) Drug use: none Marital status: single Housing status: lives alone Occupation status: retired Immunizations History of Influenza Vaccine: Yes Influenza Vaccine Date: Nov 28, 2011 History of Tetanus Vaccine?: UTD History of Pneumococcal: Yes Pneumococcal Date: Nov 28, 2011 History of Hepatitis B Vaccine: No History of MDRO No Allergies Coded Allergies: Shellfish (Verified Allergy, Unknown, 07/08/16) Medications Home Medications: Home Meds and Scripts Medications Dose Route/Sig Max Daily Dose Days Date Category Flomax (Tamsulosin Hcl) 0.4 Mg Cap 0.4 Mg PO DAILY 07/08/16 Reported Sotalol Hcl 80 Mg Tab 80 Mg PO BID 90 07/08/16 Reported Phenergan (Promethazine HCl) 25 Mg Tab 25 Mg PO Q4H PRN 07/08/16 Reported Pravachol (Pravastatin Sodium) 20 Mg Tab 40 Mg PO DAILY 07/08/16 Reported Roxicodone Ir (Oxycodone HCl) 5 Mg Tab 5-10 Mg PO Q4H PRN 07/08/16 Reported Zestril (Lisinopril) 10 Mg Tab 10 Mg PO DAILY 07/08/16 Reported Aspirin Ec (Aspirin) 81 Mg Tab 81 Mg PO DAILY 07/05/16 Reported Hctz (Hydrochlorothiazide) 25 Mg Tab 25 Mg PO DAILY 07/28/14 Reported Singulair (Montelukast Sodium) 10 Mg Tab 10 Mg PO DAILY 09/26/11 Reported Inpatient Medications: Current Inpatient Medications Medications (Trade) Dose Ordered Sig/Vinny Route Start Time Stop Time Status Last Admin Dose Admin Tamsulosin HCl (Flomax Cap) 0.4 mg DAILY PO 07/08/16 09:00 08/07/16 08:59 Sodium Chloride 1,000 ml @ 80 mls/hr [id number] IV 07/08/16 07:00 08/07/16 06:59 07/08/16 08:20 80 MLS/HR Heparin Sodium (Porcine) (Heparin Sq 5000 Unit/0.5ml) 5,000 unit Q8 SQ 07/08/16 09:00 08/07/16 08:59 Acetaminophen (Tylenol Tab) 650 mg Q4H PRN PO 07/08/16 07:00 08/07/16 06:59 Hydromorphone HCl (Dilaudid Inj) 0.5 mg Q3H PRN IV 07/08/16 07:00 07/22/16 06:59 Ondansetron HCl (Zofran Inj) 4 mg Q6H PRN IV 07/08/16 07:00 08/07/16 06:59 Aspirin (Ecotrin Tab) 81 mg DAILY PO 07/08/16 09:00 08/07/16 08:59 Montelukast Sodium (Singulair Tab) 10 mg HS PO 07/08/16 21:00 08/07/16 20:59 Pravastatin Sodium (Pravachol Tab) 40 mg DAILY PO 07/08/16 09:00 08/07/16 08:59 Sotalol HCl (Betapace Tab) 80 mg BID PO 07/08/16 09:00 08/07/16 08:59 Oxycodone/ Acetaminophen (Percocet 5-325mg Tab) pain not relieved by tylenol Q6H PRN PO 07/08/16 07:00 07/22/16 06:59 Review of Systems Review of Systems Constitutional: No fever, No chills, No frequent headaches Endocrine: No excessive thirst, No tired/sluggish Gastrointestinal: + abdominal pain, + indigestion, + nausea, No vomiting, No constipation, No diarrhea Cardiovascular: No chest pain, No palpitations, No swelling ankles/feet Respiratory: No shortness of breath, No chronic cough Male : + kidney stones, No frequent urination, No urinary retention, No weak stream, No infections Physical Exam Vital Signs: Vital Signs Past 12 Hours Date Time Temp Pulse Resp B/P (MAP) Pulse Ox O2 Delivery O2 Flow Rate FiO2 07/08/16 07:51 61 18 138/89 91 Room Air 07/08/16 06:50 60 20 138/79 92 Room Air 07/08/16 05:50 36.8 68 16 134/87 92 Room Air Physical Exam: General Appearance: WD/WN, no apparent distress, + thin Eyes: bilateral eyes normal inspection ENT: hearing grossly normal Neck: supple, no adenopathy, no JVD, trachea midline Respiratory/Chest: no respiratory distress, no accessory muscle use Cardiovascular: regular rate, rhythm Gastrointestinal: Abdomen: normal abdomen Bladder: normal bladder Renal: normal renal Extremities: non-tender, normal inspection, no pedal edema, no calf tenderness Neurologic/Psychiatric: alert, normal mood/affect, oriented x 3 Skin: normal color, warm/dry, no rash Lymphatic: no adenopathy Assessment & Plan Assessment & Plan two right ureteral stones with obstruction and renal insufficiency suggest ureteroscopy with laser lithotripsy basket stone extraction stent to remove stones and improve renal function. surgery this evening home tomorrow clears til noon then NPO except meds I explained surgery and he signed consent. ekg if none in one year. 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
[2016-07-08] MEDS ORDERED: FENTANYL CITRATE INJ 50 MCG/1 ML 2 ML VIAL ONE (17:35)
[2016-07-08] MEDS ORDERED: MIDAZOLAM HCL 1 MG/ML 2ML VIAL ONE (17:36)
[2016-07-08] MEDS ORDERED: LACTATED RINGER'S 1000ML 1,000 ML IV PRN (17:43)
[2016-07-08] MEDS ORDERED: FENTANYL CITRATE INJ 50 MCG/1 ML 2 ML VIAL IV PRN (17:45)
[2016-07-08] MEDS ORDERED: BELLADONNA/OPIUM SUPP 60 MG SUPP PR ONE ×2 (18:08→19:28)
[2016-07-08] MEDS ORDERED: DEXAMETHASONE SOD INJ 4 MG/ML VIAL ONE (18:09)
[2016-07-08] MEDS ORDERED: GLYCOPYRROLATE INJ 0.2 MG/ML VIAL ONE (18:09)
[2016-07-08] MEDS ORDERED: PROPOFOL IV EMULSION 10 MG/ML 20 ML VIAL IV ONE (18:11)
[2016-07-08] MEDS ORDERED: LIDOCAINE HCL 2% 2 ML VIAL (20MG/ML) ONE (18:11)
[2016-07-08] MEDS ORDERED: EpHEDrine SULFATE INJ 50 MG/ML AMP ONE (18:15)
[2016-07-08] MEDS ORDERED: PHENYLEPHRINE HCL INJ 10 MG/ML VIAL ONE (18:32)
[2016-07-08] MEDS ORDERED: VASOPRESSIN 20 UNIT/ML VIAL ONE (18:44)
--- NOTE | 2016-07-08 19:33 | [facility] Operative Report ---
Operative Report Operative Date Jul 08, 2016. Pre-Operative Diagnosis right ureteral stones x 2, with obstruction and renal insufficiency Post-Operative Diagnosis same Procedure(s) Performed cystoscopy right ureteroscopy, laser litho, basket stone extraction stent placement Surgeon Dr. Mustapha Gaona Seaming Machine Operator Surgeon(s) none Estimated Blood Loss 5ml Findings faintly radio-opaque right distal ureteral stone, radiolucent mid ureteral stone Specimens A. right ureteral stones for analysis Drains 6 fr 26 centimeter double j stent Anesthesia LMA Complication(s) None Disposition Recovery Room / PACU Indications obstructing two 7 mm stones in right distal ureter with renal insufficiency Description of Procedure Patient was given general lma anesthesia and placed in lithotomy position. His genitals were prepped and draped in sterile fashion. Time out held with team. I placed a 21 fr rigid cystoscope to bladder. The urethra is unremarkable. The prostate is medium large with an elevated bladder neck. The UOs are close to bladder neck. I placed a stiff wire up right ureter but it would not pass second stone. I switched to road runner wire and it passed. I switched back to stiff wire via a 5 fr cath. I calibrated the UO with a dual lumen. I used a semirigid short ureteroscope to enter distal ureter and used a 200 micron laser fiber to fragment the stone into a dozen pieces. I used a 2.2 fr zero tip basket to remove pieces and dropped them in the bladder. I could not reach the more proximal stone so I switched to a flexible ureteroscope. i found second stone at the iliac vessels and lasered the stone just above the iliac vessels into about 7 pieces. I used basket to remove the pieces. I placed a 26 centimeter 6 Fr double J stent easily. There is brisk efflux after placement. I rinsed fragments out of the bladder and sent them for analysis. I left bladder empty and concluded case. I placed a belladonna and opium suppository for post-op pain. He transferred to recovery under my escort, in stable condition. Plan: Home tomorrow Pyridium for dysuria x 3 days flomax daily until stent removed in offce in one week. 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 Any exceptions are noted below.
[2016-07-08] MEDS ORDERED: PHENAZOPYRIDINE HCL 200 MG TAB PO PRN (19:45)
--- NOTE | 2016-07-08 19:45 | DIAGNOSTIC IMAGING REPORT ---
KUB HISTORY: RT LASER/STENT FLUOROSCOPY TIME: 56 seconds FINDINGS: 2 fluoroscopic spot images were submitted for review. There is a right ureteral stent. This appears in good position. IMPRESSION: Fluoroscopy provided for right ureteral stent placement. Electronically signed by: Roverto Higginbotham M.D. 07/08/2016 7:44 PM Dictated Date/Time: 07/08/2016 7:44 PM
[2016-07-08] MEDS ORDERED: MONTELUKAST SOD 10 MG TAB PO SCH (21:00)
--- NOTE | 2016-07-08 21:10 | Anesthesiology Progress Note ---
Anesthesia Post Op Note Date & Time Jul 08, 2016 at 21:09 Vital Signs Pain Intensity: 0 Vital Signs Past 12 Hours Date Time Temp Pulse Resp B/P (MAP) Pulse Ox O2 Delivery O2 Flow Rate FiO2 07/08/16 20:45 36.5 66 18 129/102 (111) 90 Room Air 07/08/16 20:05 36.1 62 14 106/88 98 Nasal Cannula 3 07/08/16 19:55 63 14 164/79 98 Nasal Cannula 3 07/08/16 19:45 63 16 161/86 98 Nasal Cannula 3 07/08/16 19:35 67 16 174/84 98 Mask 6 07/08/16 19:27 36.1 74 16 137/76 97 Mask 10 07/08/16 15:55 Room Air 07/08/16 15:22 36.8 52 20 155/89 (111) 96 Room Air 07/08/16 09:24 57 131/74 (93) Notes Mental Status: alert / awake / arousable, participated in evaluation Pt Amnestic to Procedure: Yes Nausea / Vomiting: adequately controlled Pain: adequately controlled Airway Patency, RR, SpO2: stable & adequate BP & HR: stable & adequate Hydration State: stable & adequate Anesthetic Complications: no major complications apparent
[2016-07-08] MEDS ORDERED: NURSING DECISION MEDICATION ORDER SCH (22:00)
[2016-07-08] MEDS ORDERED: COUGH DROP (SUGAR FREE) LOZ 24 LOZ/1 BOX PO PRN (22:30)
[2016-07-09] MEDS ORDERED: DiphenhydrAMINE HCL 50 MG/ML VIAL IV STA (02:28)
[2016-07-09] MEDS ORDERED: RANITIDINE HCL 50 MG/100 ML D5W IV STA (02:30)
[2016-07-09] MEDS ORDERED: DiphenhydrAMINE INJ 25 MG in SYRINGE 0 ML IV ONE (02:30)
[2016-07-09 02:33] VITALS: BP 155/88; PULSE 59; TEMP 36.6; O2SAT 92
[2016-07-09] MEDS ORDERED: RANITIDINE IV 50 MG in DEXTROSE 5% 100ML 100 ML IV STA (02:36)
--- NOTE | 2016-07-09 02:51 | Progress Note ---
Internal Med Progress Note Date of Service: Jul 09, 2016. Provider Documentation: Made aware by RN around 230 AM of unilateral L tongue, L upper lip swelling. Not present on arrival at the floor postop as per RN. no cp, no sob no hives noted SBP 150s AP ? Angioedema IV Benadryl, Zantac, Solumedrol now PX seen at bedside. Significant improvement after IV Benadryl, Zantac administration as per px. Px refused IV Solumedrol for now. ("I don't do well w/ steroids.") no previous episodes as per px. px on home ACEI (held on admission due to ARF) Px attributes swelling to either the "anesthesia tube they put in the corner of my mouth or the pain shot (IV Hydromorphone)." Add Hydromorphone to ADR list for now. Will relay developments to AM provider. Vital Signs: Date Time Temp Pulse Resp B/P (MAP) Pulse Ox O2 Delivery O2 Flow Rate FiO2 07/09/16 08:57 56 149/81 (103) 07/09/16 07:18 36.7 54 16 158/88 (111) 92 Room Air 07/09/16 07:15 Room Air 07/09/16 02:33 36.6 59 24 155/88 (110) 92 Room Air 07/08/16 23:20 Room Air 07/08/16 23:17 36.7 62 18 158/77 (104) 93 Room Air 07/08/16 22:15 37.0 56 18 154/84 (107) 90 Room Air 07/08/16 21:16 36.9 61 16 160/89 (112) 92 Room Air 07/08/16 20:45 36.5 66 18 129/102 (111) 90 Room Air 07/08/16 20:15 94 Room Air 07/08/16 20:15 36.7 61 14 163/76 (105) 94 Room Air 07/08/16 20:05 36.1 62 14 106/88 98 Nasal Cannula 3 07/08/16 19:55 63 14 164/79 98 Nasal Cannula 3 07/08/16 19:45 63 16 161/86 98 Nasal Cannula 3 07/08/16 19:35 67 16 174/84 98 Mask 6 07/08/16 19:27 36.1 74 16 137/76 97 Mask 10 07/08/16 15:55 Room Air 07/08/16 15:22 36.8 52 20 155/89 (111) 96 Room Air Lab Results: Results Past 24 Hours Test 07/09/16 03:10 Range/Units White Blood Count 7.84 4.8-10.8 K/uL Red Blood Count 5.17 4.7-6.1 M/uL Hemoglobin 16.0 14.0-18.0 g/dL Hematocrit 45.2 42-52 % Mean Corpuscular Volume 87.4 80-100 fL Mean Corpuscular Hemoglobin 30.9 25-34 pg Mean Corpuscular Hemoglobin Concent 35.4 32-36 g/dl Platelet Count 187 130-400 K/uL Mean Platelet Volume 9.6 7.4-10.4 fL Neutrophils (%) (Auto) 89.5 % Lymphocytes (%) (Auto) 7.0 % Monocytes (%) (Auto) 3.1 % Eosinophils (%) (Auto) 0.0 % Basophils (%) (Auto) 0.1 % Neutrophils # (Auto) 7.02 1.4-6.5 K/uL Lymphocytes # (Auto) 0.55 1.2-3.4 K/uL Monocytes # (Auto) 0.24 0.11-0.59 K/uL Eosinophils # (Auto) 0.00 0-0.5 K/uL Basophils # (Auto) 0.01 0-0.2 K/uL RDW Standard Deviation 39.0 36.4-46.3 fL RDW Coefficient of Variation 12.1 11.5-14.5 % Immature Granulocyte % (Auto) 0.3 % Immature Granulocyte # (Auto) 0.02 0.00-0.02 K/uL Sodium Level 137 136-145 mmol/L Potassium Level 4.3 3.5-5.1 mmol/L Chloride Level 101 98-107 mmol/L Carbon Dioxide Level 29 21-32 mmol/L Anion Gap 7.0 3-11 mmol/L Blood Urea Nitrogen 26 7-18 mg/dl Creatinine 1.50 0.60-1.40 mg/dl Est Creatinine Clear Calc Drug Dose 60.6 ml/min Estimated GFR () 53.5 Estimated GFR (Non- 46.2 BUN/Creatinine Ratio 17.5 10-20 Random Glucose 176 70-99 mg/dl Calcium Level 8.3 8.5-10.1 mg/dl Magnesium Level 1.8 1.8-2.4 mg/dl
[2016-07-09] MEDS ORDERED: METHYLPREDNISOLONE IV 80 MG in SYRINGE 0 ML IV STA (02:52)
[2016-07-09] MEDS ORDERED: DiphenhydrAMINE HCL 50 MG/ML VIAL IV PRN (03:00)
[2016-07-09] MEDS ORDERED: DiphenhydrAMINE INJ 25 MG in SYRINGE 0 ML IV PRN (03:00)
[2016-07-09 03:25] LABS: BASO % 0.1 %; BASO ABS # 0.01 K/uL (0-0.2); COMPLETE YES; HEMATOCRIT 45.2 % (42-52); IG% 0.3 %; LYMPH ABS # 0.55 K/uL (1.2-3.4); MEAN CELL VOLUME 87.4 fL (80-100); MEAN CORPUSCULAR HEMOGLOBIN 30.9 pg (25-34); MEAN CORPUSCULAR HGB CONC 35.4 g/dl (32-36); MEAN PLATELET VOLUME 9.6 fL (7.4-10.4); MONO % 3.1 %; NEUT % 89.5 %; PLATELET COUNT 187 K/uL (130-400); RED BLOOD COUNT 5.17 M/uL (4.7-6.1); WHITE BLOOD COUNT 7.84 K/uL (4.8-10.8)
[2016-07-09 03:43] LABS: BUN/CREATININE RATIO 17.5 (10-20); CALCIUM 8.3 mg/dl (8.5-10.1); CREATININE 1.5 mg/dl (0.60-1.40); MAGNESIUM 1.8 mg/dl (1.8-2.4); POTASSIUM 4.3 mmol/L (3.5-5.1)
--- NOTE | 2016-07-09 04:27 | Progress Note ---
Medicine Progress Note Date & Time of Visit: Jul 08, 2016 at 20:20 . Subjective Admitted this morning with right ureteral calculi. Cystoscopy with ureteroscopy, laser lithotripsy, basket stone extraction, ureteral stent placement performed by Dr. Gaona. Doing well postoperatively. No chest pain. No cough or dyspnea. No nausea or vomiting. No postoperative pain. . Objective Last 8 Hrs Date Time Temp Pulse Resp B/P (MAP) Pulse Ox O2 Delivery O2 Flow Rate FiO2 07/09/16 02:33 36.6 59 24 155/88 (110) 92 Room Air 07/08/16 23:20 Room Air 07/08/16 23:17 36.7 62 18 158/77 (104) 93 Room Air 07/08/16 22:15 37.0 56 18 154/84 (107) 90 Room Air 07/08/16 21:16 36.9 61 16 160/89 (112) 92 Room Air 07/08/16 20:45 36.5 66 18 129/102 (111) 90 Room Air Physical Exam: General- no distress Lungs- clear Heart- regular rate and rhythm Abdomen- quite bowel sounds, soft, nontender Extremities- no pretibial edema or calf tenderness Neuro- alert . Laboratory Results: Last 24 Hours Test 07/08/16 06:12 07/09/16 03:10 White Blood Count 12.27 K/uL 7.84 K/uL Red Blood Count 5.35 M/uL 5.17 M/uL Hemoglobin 16.7 g/dL 16.0 g/dL Hematocrit 46.8 % 45.2 % Mean Corpuscular Volume 87.5 fL 87.4 fL Mean Corpuscular Hemoglobin 31.2 pg 30.9 pg Mean Corpuscular Hemoglobin Concent 35.7 g/dl 35.4 g/dl Platelet Count 188 K/uL 187 K/uL Mean Platelet Volume 9.8 fL 9.6 fL Neutrophils (%) (Auto) 69.4 % 89.5 % Lymphocytes (%) (Auto) 12.7 % 7.0 % Monocytes (%) (Auto) 13.4 % 3.1 % Eosinophils (%) (Auto) 4.0 % 0.0 % Basophils (%) (Auto) 0.3 % 0.1 % Neutrophils # (Auto) 8.50 K/uL 7.02 K/uL Lymphocytes # (Auto) 1.56 K/uL 0.55 K/uL Monocytes # (Auto) 1.65 K/uL 0.24 K/uL Eosinophils # (Auto) 0.49 K/uL 0.00 K/uL Basophils # (Auto) 0.04 K/uL 0.01 K/uL RDW Standard Deviation 39.4 fL 39.0 fL RDW Coefficient of Variation 12.3 % 12.1 % Immature Granulocyte % (Auto) 0.2 % 0.3 % Immature Granulocyte # (Auto) 0.03 K/uL 0.02 K/uL Prothrombin Time 11.0 SECONDS Prothromb Time International Ratio 1.0 Activated Partial Thromboplast Time 31.6 SECONDS Partial Thromboplastin Ratio 1.2 Urine Color YELLOW Urine Appearance CLEAR Urine pH 6.0 Urine Specific [place] 1.020 Urine Protein NEG Urine Glucose (UA) NEG Urine Ketones NEG Urine Occult Blood TRACE Urine Nitrite NEG Urine Bilirubin NEG Urine Urobilinogen NEG Urine Leukocyte Esterase NEG Urine WBC (Auto) 1-5 /hpf Urine RBC (Auto) 0-4 /hpf Urine Hyaline Casts (Auto) 1-5 /lpf Urine Epithelial Cells (Auto) 5-10 /lpf Urine Bacteria (Auto) NEG Sodium Level 137 mmol/L 137 mmol/L Potassium Level 3.9 mmol/L 4.3 mmol/L Chloride Level 100 mmol/L 101 mmol/L Carbon Dioxide Level 29 mmol/L 29 mmol/L Anion Gap 8.0 mmol/L 7.0 mmol/L Blood Urea Nitrogen 29 mg/dl 26 mg/dl Creatinine 1.80 mg/dl 1.50 mg/dl Est Creatinine Clear Calc Drug Dose 50.5 ml/min 60.6 ml/min Estimated GFR () 42.9 53.5 Estimated GFR (Non- 37.0 46.2 BUN/Creatinine Ratio 16.1 17.5 Random Glucose 103 mg/dl 176 mg/dl Calcium Level 8.7 mg/dl 8.3 mg/dl Magnesium Level 2.0 mg/dl 1.8 mg/dl Total Bilirubin 0.9 mg/dl Direct Bilirubin 0.2 mg/dl Aspartate Amino Transf (AST/SGOT) 17 U/L Alanine Aminotransferase (ALT/SGPT) 20 U/L Alkaline Phosphatase 63 U/L Total Protein 7.4 gm/dl Albumin 3.3 gm/dl Date/Time Source Procedure Growth Status 07/08/16 06:12 Urine , Clean Catch Urine Culture Pending Received Assessment & Plan RIGHT URETERAL CALCULI CT performed in ED on 07/05/16 demonstrated to calculi, each measuring 7 mm, within the distal right ureter with associated mild to moderate right hydronephrosis. Bilateral renal calculi also noted. Patient returned to the ED early this morning with severe ureteral colic. Urology consulted. Cystoscopy with ureteroscopy, laser lithotripsy, basket stone extraction, ureteral stent placement performed by Dr. Gaona. No apparent infection. ACUTE KIDNEY INJURY Serum creatinine 1.8 on admission. Acute kidney injury probably due to combination of volume depletion and right ureteral obstruction. Right ureteral calculi removed as discussed above. Continue IV fluids. Follow. HISTORY OF ATRIAL FIBRILLATION RRR. Continue sotalol and aspirin. HYPERTENSION Continue lisinopril. VTE PROPHYLAXIS SQ heparin. Ambulate. DISPOSITION Expected discharge to home. Family Medicine follow-up with Dr. Gonzalez. . Current Inpatient Medications: Current Inpatient Medications Medications (Trade) Dose Ordered Sig/Vinny Route Start Time Stop Time Status Last Admin Dose Admin Tamsulosin HCl (Flomax Cap) 0.4 mg DAILY PO 07/08/16 09:00 08/07/16 08:59 07/08/16 09:22 0.4 MG Sodium Chloride 1,000 ml @ 80 mls/hr [id number] IV 07/08/16 07:00 08/07/16 06:59 07/08/16 21:18 80 MLS/HR Heparin Sodium (Porcine) (Heparin Sq 5000 Unit/0.5ml) 5,000 unit Q8 SQ 07/08/16 09:00 08/07/16 08:59 07/08/16 21:37 5,000 UNIT Acetaminophen (Tylenol Tab) 650 mg Q4H PRN PO 07/08/16 07:00 08/07/16 06:59 Hydromorphone HCl (Dilaudid Inj) 0.5 mg Q3H PRN IV 07/08/16 07:00 07/22/16 06:59 07/08/16 22:00 0.5 MG Ondansetron HCl (Zofran Inj) 4 mg Q6H PRN IV 07/08/16 07:00 08/07/16 06:59 Aspirin (Ecotrin Tab) 81 mg DAILY PO 07/08/16 09:00 08/07/16 08:59 07/08/16 09:22 81 MG Montelukast Sodium (Singulair Tab) 10 mg HS PO 07/08/16 21:00 08/07/16 20:59 07/08/16 21:19 10 MG Pravastatin Sodium (Pravachol Tab) 40 mg DAILY PO 07/08/16 09:00 08/07/16 08:59 07/08/16 09:22 40 MG Sotalol HCl (Betapace Tab) 80 mg BID PO 07/08/16 09:00 08/07/16 08:59 07/08/16 21:19 80 MG Oxycodone/ Acetaminophen (Percocet 5-325mg Tab) pain not relieved by tylenol Q6H PRN PO 07/08/16 07:00 07/22/16 06:59 Phenazopyridine HCl (Pyridium Tab) 200 mg TID PRN PO 07/08/16 19:45 08/07/16 19:44 Menthol (Nice Liliane) 1 liliane PRN PRN PO 07/08/16 22:30 08/07/16 22:29 07/08/16 23:32 1 LILIANE Diphenhydramine HCl (Benadryl Inj) 25 mg Q6H PRN IV 07/09/16 03:00 08/08/16 02:59
[2016-07-09] MEDS: HEPARIN SOD 5000 UNIT/0.5 ML CARP SQ SCH ×2 (05:35→13:58)
[2016-07-09] MEDS ORDERED: MoRPHine SULFATE 2 MG/ML CARP IV PRN (07:15)
[2016-07-09 07:18] VITALS: BP 158/88; PULSE 54; TEMP 36.7; O2SAT 92
--- NOTE | 2016-07-09 08:13 | Anesthesiology Progress Note ---
Anesthesia Post Op Note Date & Time Jul 09, 2016 at 08:12 Vital Signs Pain Intensity: 0.0 Vital Signs Past 12 Hours Date Time Temp Pulse Resp B/P (MAP) Pulse Ox O2 Delivery O2 Flow Rate FiO2 07/09/16 07:18 36.7 54 16 158/88 (111) 92 Room Air 07/09/16 07:15 Room Air 07/09/16 02:33 36.6 59 24 155/88 (110) 92 Room Air 07/08/16 23:20 Room Air 07/08/16 23:17 36.7 62 18 158/77 (104) 93 Room Air 07/08/16 22:15 37.0 56 18 154/84 (107) 90 Room Air 07/08/16 21:16 36.9 61 16 160/89 (112) 92 Room Air 07/08/16 20:45 36.5 66 18 129/102 (111) 90 Room Air 07/08/16 20:15 94 Room Air 07/08/16 20:15 36.7 61 14 163/76 (105) 94 Room Air Notes Mental Status: alert / awake / arousable, participated in evaluation Pt Amnestic to Procedure: Yes Nausea / Vomiting: adequately controlled Pain: adequately controlled Airway Patency, RR, SpO2: stable & adequate BP & HR: stable & adequate Hydration State: stable & adequate Anesthetic Complications: no major complications apparent
[2016-07-09 08:57] VITALS: BP 149/81; PULSE 56
[2016-07-09] MEDS: SOTALOL HCL 80 MG TAB PO SCH (08:58)
[2016-07-09] MEDS: ASPIRIN 81 MG ECTAB PO SCH (09:03)
[2016-07-09] MEDS: TAMSULOSIN HCL 0.4 MG CAP PO SCH (09:03)
[2016-07-09] MEDS: PRAVASTATIN SOD 40 MG TAB PO SCH (09:04)
[2016-07-09] MEDS: SODIUM CHLORIDE 0.9% 1000ML 1,000 ML IV SCH (10:30)
[2016-07-09 12:45] VITALS: BP 153/82; PULSE 59; TEMP 36.4; O2SAT 93
--- NOTE | 2016-07-09 14:28 | Progress Note ---
Medicine Progress Note Date & Time of Visit: Jul 09, 2016 at 14:00 . Subjective Thickening of tongue last night. No airway or swallowing difficulties. Received diphenhydramine with resolution. Feels well today and ready for DC. No fever. No chest pain, cough, SOB, nausea, vomiting, diarrhea. Mild discomfort with voiding. . Objective Last 8 Hrs Date Time Temp Pulse Resp B/P (MAP) Pulse Ox O2 Delivery O2 Flow Rate FiO2 07/09/16 12:45 36.4 59 16 153/82 (105) 93 Room Air 07/09/16 08:57 56 149/81 (103) 07/09/16 07:18 36.7 54 16 158/88 (111) 92 Room Air 07/09/16 07:15 Room Air Physical Exam: General- no distress HEENT- no edema of tongue or lips Lungs- clear Heart- regular rate and rhythm Abdomen- quite bowel sounds, soft, nontender Extremities- no pretibial edema or calf tenderness Neuro- alert Skin- no urticaria or other rashes . Laboratory Results: Last 24 Hours Test 07/09/16 03:10 White Blood Count 7.84 K/uL Red Blood Count 5.17 M/uL Hemoglobin 16.0 g/dL Hematocrit 45.2 % Mean Corpuscular Volume 87.4 fL Mean Corpuscular Hemoglobin 30.9 pg Mean Corpuscular Hemoglobin Concent 35.4 g/dl Platelet Count 187 K/uL Mean Platelet Volume 9.6 fL Neutrophils (%) (Auto) 89.5 % Lymphocytes (%) (Auto) 7.0 % Monocytes (%) (Auto) 3.1 % Eosinophils (%) (Auto) 0.0 % Basophils (%) (Auto) 0.1 % Neutrophils # (Auto) 7.02 K/uL Lymphocytes # (Auto) 0.55 K/uL Monocytes # (Auto) 0.24 K/uL Eosinophils # (Auto) 0.00 K/uL Basophils # (Auto) 0.01 K/uL RDW Standard Deviation 39.0 fL RDW Coefficient of Variation 12.1 % Immature Granulocyte % (Auto) 0.3 % Immature Granulocyte # (Auto) 0.02 K/uL Sodium Level 137 mmol/L Potassium Level 4.3 mmol/L Chloride Level 101 mmol/L Carbon Dioxide Level 29 mmol/L Anion Gap 7.0 mmol/L Blood Urea Nitrogen 26 mg/dl Creatinine 1.50 mg/dl Est Creatinine Clear Calc Drug Dose 60.6 ml/min Estimated GFR () 53.5 Estimated GFR (Non- 46.2 BUN/Creatinine Ratio 17.5 Random Glucose 176 mg/dl Calcium Level 8.3 mg/dl Magnesium Level 1.8 mg/dl Assessment & Plan RIGHT URETERAL CALCULI CT performed in ED on 07/05/16 demonstrated to calculi, each measuring 7 mm, within the distal right ureter with associated mild to moderate right hydronephrosis. Bilateral renal calculi also noted. Patient returned to the ED early this morning with severe ureteral colic. Urology consulted. Cystoscopy with ureteroscopy, laser lithotripsy, basket stone extraction, ureteral stent placement performed by Dr. Gaona. No apparent infection. ACUTE KIDNEY INJURY Serum creatinine 1.8 on admission. Acute kidney injury probably due to combination of volume depletion and right ureteral obstruction. Right ureteral calculi removed as discussed above. Received IV fluids. Serum creatinine improved to 1.5. Recheck BMP in clinic. HISTORY OF ATRIAL FIBRILLATION RRR. Continue sotalol and aspirin. HYPERTENSION Possible angioedema, possibly from lisinopril. Discharge on HCTZ and sotalol. Hold lisinopril. Recheck BP in clinic and adjust meds as necessary. TONGUE SWELLING Episode of tongue swelling night of 07/08. Possible angioedema, etiology uncertain. Resolved with diphenhydramine. Advised to consider stopping lisinopril. VTE PROPHYLAXIS SQ heparin. Ambulate. DISPOSITION Discharge to home. Family Medicine follow-up with Dr. Gonzalez. Urology follow-up with Dr. Gaona. . Consultants: Urology with Dr. Gaona . Procedures: cystoscopy with ureteroscopy, laser lithotripsy, basket stone extraction, ureteral stent placement performed by Dr. Gaona 07/08 IV fluids IV meds . Current Inpatient Medications: Current Inpatient Medications Medications (Trade) Dose Ordered Sig/Vinny Route Start Time Stop Time Status Last Admin Dose Admin Tamsulosin HCl (Flomax Cap) 0.4 mg DAILY PO 07/08/16 09:00 08/07/16 08:59 07/09/16 09:03 0.4 MG Sodium Chloride 1,000 ml @ 80 mls/hr [id number] IV 07/08/16 07:00 08/07/16 06:59 07/09/16 10:30 80 MLS/HR Heparin Sodium (Porcine) (Heparin Sq 5000 Unit/0.5ml) 5,000 unit Q8 SQ 07/08/16 09:00 08/07/16 08:59 07/08/16 21:37 5,000 UNIT Acetaminophen (Tylenol Tab) 650 mg Q4H PRN PO 07/08/16 07:00 08/07/16 06:59 Ondansetron HCl (Zofran Inj) 4 mg Q6H PRN IV 07/08/16 07:00 08/07/16 06:59 Aspirin (Ecotrin Tab) 81 mg DAILY PO 07/08/16 09:00 08/07/16 08:59 07/09/16 09:03 81 MG Montelukast Sodium (Singulair Tab) 10 mg HS PO 07/08/16 21:00 08/07/16 20:59 07/08/16 21:19 10 MG Pravastatin Sodium (Pravachol Tab) 40 mg DAILY PO 07/08/16 09:00 08/07/16 08:59 07/09/16 09:04 40 MG Sotalol HCl (Betapace Tab) 80 mg BID PO 07/08/16 09:00 08/07/16 08:59 07/08/16 21:19 80 MG Oxycodone/ Acetaminophen (Percocet 5-325mg Tab) pain not relieved by tylenol Q6H PRN PO 07/08/16 07:00 07/22/16 06:59 Phenazopyridine HCl (Pyridium Tab) 200 mg TID PRN PO 07/08/16 19:45 08/07/16 19:44 Menthol (Nice Liliane) 1 liliane PRN PRN PO 07/08/16 22:30 08/07/16 22:29 07/08/16 23:32 1 LILIANE Diphenhydramine HCl (Benadryl Inj) 25 mg Q6H PRN IV 07/09/16 03:00 08/08/16 02:59 Morphine Sulfate (MoRPHine SULFATE INJ) 2 mg Q4H PRN IV 07/09/16 07:15 07/23/16 07:14
[2016-07-09] MEDS ORDERED: TAMS0.4C38 PO (14:33)
[2016-07-09] MEDS ORDERED: PHEN-876 PO (14:33)
--- NOTE | 2016-07-09 14:41 | Discharge Instructions ---
Discharge Instructions Date of Service Jul 09, 2016. Admission Reason for Admission: kidney stones . Discharge Discharge Diagnosis / Problem: kidney stones Discharge Goals Goal(s): Decrease discomfort, Improve disease control Activity Recommendations Activity Limitations: resume your previous activity . Instructions / Follow-Up Instructions / Follow-Up APPOINTMENTS: FAMILY MEDICINE 07/13/2016 1:10 PM Toro Gonzalez MD UROLOGY Dr. Gaona Office will contact you with appointment. INSTRUCTIONS: Drink plenty of fluids. Lisinopril (Prinivil or Zestril) can cause swelling of tongue and lips ( angioedema). This is a rare, but potentially serious, complication. We are not certain what caused the swelling of your tongue in the hospital. Suggest holding lisinopril for now and consider a different class of blood pressure medicines. Please discuss further when you see Dr. Gonzalez in clinic next week. New medications- phenazopyridine (Pyridium) 200 mg 3 times a day for 3 days (helps with bladder pain) tamsulosin (Flomax) 0.4 mg daily until stent removed (helps relax muscles in ureter) (prescriptions sent to [facility]) Seek medical attention if you have: * temperature above 101 * swelling of tongue or lips * chest pain or trouble breathing * abdominal pain, nausea, vomiting * diarrhea, dark stools or bloody stools * any unanswered questions or concerns Call 911 if symptoms are severe. Call if you have any questions or problems. My cell # is [phone]. You can also reach a [facility] hospitalist on duty at [facility] 24 hours a day by calling [phone]. Please take good care of yourself. Rene Escudero . Current Hospital Diet Patient's current hospital diet: Regular Diet Discharge Diet Recommended Diet: AHA Diet (Heart Healthy) Procedures Procedures Performed: cystoscopy, right ureteroscopy, laser lithotripsy, basket stone extraction, placement of right ureteral stent Pending Studies Studies pending at discharge: yes List of pending studies: kidney stone analysis Medical Emergencies . Who to Call and When: Medical Emergencies: If at any time you feel your situation is an emergency, please call 911 immediately. . Non-Emergent Contact Non-Emergency issues call your: Primary Care Provider, Hospital Doctor, Urologist . . "Provider Documentation" section prepared by Rene C Coppes. . VTE Core Measure Inpt VTE Proph given/why not?: Unfractionated heparin SQ
[2016-07-09 14:52] VITALS: BP 153/82; PULSE 59; TEMP 36.4; O2SAT 93
--- NOTE | 2016-07-10 13:56 | Discharge Summary ---
Discharge Summary Date of Service Jul 10, 2016. Discharge Summary Admission Date: Jul 08, 2016 at 07:00 Discharge Date: Jul 09, 2016 Discharge Disposition: Home Principal Diagnosis: ureteral colic due to right ureteral calculi hydronephrosis acute kidney injury . Secondary Diagnoses/Problems: Chronic and Resolved Medical Problems: (1) ATRIAL FIBRILLATION Permanent Comment: Intermittent. Echo 2004- EF = 60%, normal LV wall motion Status: Chronic (2) Dyslipidemia Status: Chronic (3) History of asthma Status: Chronic (4) History of cardioversion Permanent Comment: A fib to NSR, 2004 Status: Chronic (5) History of gastroesophageal reflux (GERD) Status: Chronic (6) History of renal stone Status: Chronic (7) HYPERLIPIDEMIA NEC/NOS Status: Chronic (8) HYPERTENSION NOS Status: Chronic (9) Osteoarthritis of left hip Status: Chronic Surgical Problems: (1) History of appendectomy Status: Chronic (2) History of cataract surgery Status: Chronic (3) History of rotator cuff surgery Status: Chronic (4) History of tonsillectomy Status: Chronic . Procedures: cystoscopy with ureteroscopy, laser lithotripsy, basket stone extraction, ureteral stent placement performed by Dr. Gaona 07/08 IV fluids IV meds . Consultations: Urology with Dr. Gaona . Pending Studies/Follow-Up: Ureteral calculus analysis pending. Please check basic metabolic profile in clinic. . Medication Reconciliation New Medications: Phenazopyridine HCl (Pyridium) 200 Mg Tab 200 MG PO TID for Bladder Pain, #9 TAB Continued Medications: Aspirin (Aspirin Ec) 81 Mg Tab 81 MG PO DAILY Hydrochlorothiazide (Hctz) 25 Mg Tab 25 MG PO DAILY Montelukast Sodium (Singulair) 10 Mg Tab 10 MG PO DAILY, TAB Oxycodone Ir (Roxicodone Ir) 5 Mg Tab 5-10 MG PO Q4H PRN for Severe Pain, TAB Pravastatin (Pravachol ) 20 Mg Tab 40 MG PO DAILY, TAB Promethazine Hcl (Phenergan) 25 Mg Tab 25 MG PO Q4H PRN for Nausea, TAB Sotalol Hcl (Sotalol Hcl) 80 Mg Tab 80 MG PO BID for 90 Days, #180 TAB 3 Refills Tamsulosin Hcl (Flomax) 0.4 Mg Cap 0.4 MG PO DAILY, #7 CAP (This prescription has been renewed) Discontinued Medications: Lisinopril (Zestril) 10 Mg Tab 10 MG PO DAILY, TAB Admission Information HPI (per Admitting provider): Medical history significant for urolithiasis, hypertension, hyperlipidemia, Afib status post cardioversion on aspirin as per records, GERD. Recent confinement under Cardiology service last June 2014 for Afib. The patient underwent cardioversion and antiarrhythmic loading with sotalol. Last few days patient noted achy hyogastric pain going to the right flank similar to kidney stones in the past, no hematuria, no fever, no chills. Seen at the ER a few days ago. CAT scan showed showed 2 adjacent 7 mm stones distal right ureter resulting in [id number] hydronephrosis. serum crea 1.8. Patient offered admission but opted to go home. Patient prescribed oxycodone, tamsulosin. Intractable pain despite medication. No stone passage. No fever/chills/hematuria. . Physical Exam (per Admitting): VITAL SIGNS: Blood pressure was noted to be 124/80, pulse rate 80, RR 18, sats 98 on room air. GENERAL: Noted to be slightly uncomfortable, no resp distress. SKIN: Normal color. HEAD, EYES, EARS, NOSE, AND THROAT: [place] palpebral conjunctivae. Dry mucosa. NECK: No JVD. supple CHEST: Clear to auscultation. HEART: Bradycardic. ABDOMEN: Minimal hypogastric. tenderness EXTREMITIES: No edema. no tenderness NEUROLOGIC: No gross focality. . Hospital Course RIGHT URETERAL CALCULI CT performed in ED on 07/05/16 demonstrated to calculi, each measuring 7 mm, within the distal right ureter with associated mild to moderate right hydronephrosis. Bilateral renal calculi also noted. Patient returned to the ED early this morning with severe ureteral colic. Urology consulted. Cystoscopy with ureteroscopy, laser lithotripsy, basket stone extraction, ureteral stent placement performed by Dr. Gaona. No apparent infection. ACUTE KIDNEY INJURY Serum creatinine 1.8 on admission. Acute kidney injury probably due to combination of volume depletion and right ureteral obstruction. Right ureteral calculi removed as discussed above. Received IV fluids. Serum creatinine improved to 1.5. Recheck BMP in clinic. HISTORY OF ATRIAL FIBRILLATION RRR. Continue sotalol and aspirin. HYPERTENSION Possible angioedema, possibly from lisinopril. Discharge on HCTZ and sotalol. Hold lisinopril. Recheck BP in clinic and adjust meds as necessary. TONGUE SWELLING Episode of tongue swelling night of 07/08. Possible angioedema, etiology uncertain. Resolved with diphenhydramine. Advised to consider stopping lisinopril. VTE PROPHYLAXIS SQ heparin. Ambulate. DISPOSITION Discharged to home. Family Medicine follow-up with Dr. Gonzalez. Urology follow-up with Dr. Gaona. . Total time spent on discharge = 35 min. This includes examination of the patient, discharge planning, medication reconciliation, and communication with other providers. . Discharge Instructions Date of Service Jul 09, 2016. Admission Reason for Admission: kidney stones . Discharge Discharge Diagnosis / Problem: kidney stones Discharge Goals Goal(s): Decrease discomfort, Improve disease control Activity Recommendations Activity Limitations: resume your previous activity . Instructions / Follow-Up Instructions / Follow-Up APPOINTMENTS: FAMILY MEDICINE 07/13/2016 1:10 PM Toro Gonzalez MD UROLOGY Dr. Gaona Office will contact you with appointment. INSTRUCTIONS: Drink plenty of fluids. Lisinopril (Prinivil or Zestril) can cause swelling of tongue and lips ( angioedema). This is a rare, but potentially serious, complication. We are not certain what caused the swelling of your tongue in the hospital. Suggest holding lisinopril for now and consider a different class of blood pressure medicines. Please discuss further when you see Dr. Gonzalez in clinic next week. New medications- phenazopyridine (Pyridium) 200 mg 3 times a day for 3 days (helps with bladder pain) tamsulosin (Flomax) 0.4 mg daily until stent removed (helps relax muscles in ureter) (prescriptions sent to [facility]) Seek medical attention if you have: * temperature above 101 * swelling of tongue or lips * chest pain or trouble breathing * abdominal pain, nausea, vomiting * diarrhea, dark stools or bloody stools * any unanswered questions or concerns Call 911 if symptoms are severe. Call if you have any questions or problems. My cell # is [phone]. You can also reach a [facility] hospitalist on duty at [facility] 24 hours a day by calling [phone]. Please take good care of yourself. Rene Escudero . Current Hospital Diet Patient's current hospital diet: Regular Diet Discharge Diet Recommended Diet: AHA Diet (Heart Healthy) Procedures Procedures Performed: cystoscopy, right ureteroscopy, laser lithotripsy, basket stone extraction, placement of right ureteral stent Pending Studies Studies pending at discharge: yes List of pending studies: kidney stone analysis Medical Emergencies . Who to Call and When: Medical Emergencies: If at any time you feel your situation is an emergency, please call 911 immediately. . Non-Emergent Contact Non-Emergency issues call your: Primary Care Provider, Hospital Doctor, Urologist . . "Provider Documentation" section prepared by Rene Escudero. . VTE Core Measure Inpt VTE Proph given/why not?: Unfractionated heparin SQ . Additional Copies To Beata Gaona MD; Toro Gonzalez M.D.
== END 2016-07-09 15:37 | disposition home or self-care (01) | DRG 669 ==
LOC: C.EDB 05:47 → C.MSN 07:00 → ENRESERV 07:17
PROVIDERS: ADMIT Hospitalist; ATTEND Hospitalist
PROC: 0T768DZ Dilation of Right Ureter with Intraluminal Device, Via Natural or Artificial Opening Endoscopic (ICD-10-PCS; principal; 2016-07-08 18:00)
PROC: 0TCB8ZZ Extirpation of Matter from Bladder, Via Natural or Artificial Opening Endoscopic (ICD-10-PCS; principal; 2016-07-08 18:00)
PROC: 0TC68ZZ Extirpation of Matter from Right Ureter, Via Natural or Artificial Opening Endoscopic (ICD-10-PCS; principal; 2016-07-08 18:00)
DX: N13.2 Hydronephrosis with renal and ureteral calculous obstruction (principal); N17.9 Acute kidney failure, unspecified; I48.91 Unspecified atrial fibrillation; I10 Essential (primary) hypertension; E78.5 Hyperlipidemia, unspecified; K21.9 Gastro-esophageal reflux disease without esophagitis; Z79.82 Long term (current) use of aspirin; Z79.899 Other long term (current) drug therapy; N28.9 Disorder of kidney and ureter, unspecified; M16.12 Unilateral primary osteoarthritis, left hip; J45.909 Unspecified asthma, uncomplicated; Z87.442 Personal history of urinary calculi; Z90.89 Acquired absence of other organs; Z98.49 Cataract extraction status, unspecified eye; Z98.890 Other specified postprocedural states

== ENCOUNTER 2016-10-26 21:53 | Emergency (ER) | payer OTHER ==
[~2016-10-26] VITALS: Ht 189.9 cm; Wt 92.5 kg
[~2016-10-26 21:53] MED LIST changes: -BTP80 PO; -LISI-461 PO; +PHEN-876 PO; +SOTA80TA PO
[2016-10-26 21:57] VITALS: TEMP 36.6; Ht 189.9 cm; Wt 92.5 kg
[2016-10-26] MEDS ORDERED: SODI650T8 PO (22:03)
[2016-10-26] MEDS ORDERED: CEFAZOLIN SOD 1 GM VIAL IM STA (22:12)
--- NOTE | 2016-10-26 22:25 | EMERGENCY ROOM VISIT NOTE ---
History Report prepared by Cade: Shen Rodriguez Under the Supervision of: Dr. Lucrecia Anderson D.O. First contact with patient: 22:01 Chief Complaint: INFECTION Stated Complaint: SWELLING,REDNESS,SOMEPAIN INFECTION ON ARM Nursing Triage Summary: see triage note History of Present Illness The patient is a 71 year old male who presents to the Emergency Room with complaints of a worsening infection to the left forearm beginning three days ago. The patient states that three days ago he noted a rash on his left forearm that was very pruritic. He reports that he picked at it and put hydrogen peroxide on it. The patient notes that he did not notice symptoms for the past two nights until he went to bed. He states that he placed his hand on it, and it was warm, mildly tender, and swollen. The patient reports that he knew it was an infection and did not want to wait until the morning in case it spread. He notes that he has nine cats, but denies being scratched by them. The patient states that he took ibuprofen and was going to take an antihistamine, but he knew that he needed an antibiotic. He denies fevers, chills, dizziness, nausea, vomiting, a history of MRSA or diabetes mellitus, and being on an immunocompromising drug. The patient reports that he has a history of A-Fib, but it is well under control. He notes that he is on aspirin. The patient states that he was on Warfarin until he had a biceps tendon rupture. Source of History: patient Onset: three days ago Position: arm (left, forearm) Quality: other (rash and pruritic) Timing: worsening Associated Symptoms: No fevers, No chills, No nausea, No vomiting Note: Associated symptoms: warmth, erythema, edema Denies: dizziness Review of Systems See HPI for pertinent positives & negatives. A total of 10 systems reviewed and were otherwise negative. Past Medical & Surgical Medical Problems: (1) ARF (acute renal failure) (2) ATRIAL FIBRILLATION (3) Dyslipidemia (4) History of asthma (5) History of cardioversion (6) History of gastroesophageal reflux (GERD) (7) History of renal stone (8) HYPERLIPIDEMIA NEC/NOS (9) HYPERTENSION NOS (10) Osteoarthritis of left hip Surgical Problems: (1) History of appendectomy (2) History of cataract surgery (3) History of rotator cuff surgery (4) History of tonsillectomy Family History Patient reports no known family medical history. Social History Smoking Status: Never Smoker Alcohol Use: occasionally Drug Use: none Marital Status: single Occupation Status: retired Current/Historical Medications Scheduled Aspirin (Aspirin Ec), 81 MG PO DAILY Cephalexin Monohydrate (Keflex), 500 MG PO QID Hydrochlorothiazide (Hctz), 25 MG PO DAILY Montelukast Sodium (Singulair), 10 MG PO DAILY Pravastatin (Pravachol ), 40 MG PO DAILY Sodium Bicarbonate (Sodium Bicarbonate), 650 MG PO BID Sotalol Hcl (Sotalol Hcl), 80 MG PO BID Allergies Coded Allergies: Hydromorphone (Verified Allergy, Intermediate, 0, 07/09/16) poss angioedema Shellfish (Verified Allergy, Unknown, 10/26/16) Physical Exam Vital Signs Date Time Temp Pulse Resp B/P (MAP) Pulse Ox O2 Delivery O2 Flow Rate FiO2 10/26/16 23:10 87 18 147/94 92 10/26/16 21:57 36.6 81 17 128/94 95 Room Air Physical Exam GENERAL: alert, well appearing, well nourished, no distress, non-toxic EYE EXAM: normal conjunctiva, PERRL and EOM's grossly intact OROPHARYNX: no exudate, no erythema, lips, buccal mucosa, and tongue normal and mucous membranes are moist NECK: supple, no nuchal rigidity, no adenopathy, non-tender LUNGS: Clear to auscultation. Normal chest wall mechanics HEART: Irregularly irregular. No murmurs, S1 normal and S2 normal ABDOMEN: abdomen soft, non-tender, normo-active bowel sounds, no masses, no rebound or guarding. BACK: Back is symmetrical on inspection and there is no deformity, no midline tenderness, no CVA tenderness. SKIN: no bruising. 8x12 area on the left ventral forearm, central lesion, no fluctuant, no active drainage, surrounding erythema is warm to touch, no vesicles, or petechiae, appearance of ascending lymphangitis at the AC fossa. UPPER EXTREMITIES: upper extremities are grossly normal. LOWER EXTREMITIES: No pitting edema. NEURO EXAM: Normal sensorium, cranial nerves II-XII grossly intact, normal speech, no gross weakness of arms, no gross weakness of legs. Medical Decision & Procedures Medications Administered Medications (Trade) Dose Ordered Sig/Vinny Route Start Time Stop Time Status Last Admin Dose Admin Cefazolin Sodium (Ancef Inj) 1,000 mg NOW STAT IM 10/26/16 22:12 10/26/16 22:16 DC 10/26/16 22:12 1,000 MG Sterile Water (Sterile Water Inj) 10 ml STK-MED ONCE .ROUTE 10/26/16 22:36 10/26/16 22:37 DC 10/26/16 22:36 10 ML ED Course 2205: The patient was evaluated in room A02. A complete history and physical exam was performed. I discussed the results from the physical exam. I discussed the treatment plan and discharge instructions. The patient verbalized complete agreement. He will be discharge once he receives his medication. 2211: Ordered Cefazolin Sodium 1000mg IM 2235: Ordered Sterile Water 10ml .ROUTE Medical Decision Differential diagnosis includes etiologies such as cellulitis, abscess, MRSA infection, DVT, necrotizing fasciitis, dermatitis, drug eruption, as well as others were entertained. Pt well appearing here with small area of cellulitis noted to the arm. No systemic sx and no fever/chills. Area marked with sterile marking pen. Pt started on antibiotics. Discussed use of meds, sx to watch/return for. No area of fluctuance or obvious abscess to I&D. Doubt bacteremia/sepsis, likely early ascending lymphangitis. No edema, doubt dvt/SVC syndrome. Pt takes asa daily. Medication Reconcilliation Current Medication List: was personally reviewed by me Blood Pressure Screening Patient's blood pressure: Normal blood pressure Blood pressure disposition: Did not require urgent referral Impression Primary Impression: Cellulitis Scribe Attestation The scribe's documentation has been prepared under my direction and personally reviewed by me in its entirety. I confirm that the note above accurately reflects all work, treatment, procedures, and medical decision making performed by me. Departure Information Dispostion Home / Self-Care Prescriptions Cephalexin Monohydrate (Keflex) 500 Mg Cap 500 MG PO QID, #28 CAP Prov: Lucrecia Anderson, DO 10/26/16 Referrals Toro Gonzalez M.D.([facility]) (PCP) Forms HOME CARE DOCUMENTATION FORM, IMPORTANT VISIT INFORMATION, WORK / SCHOOL INSTRUCTIONS Patient Instructions My [facility] Additional Instructions Please take the antibiotic as prescribed. Please consider using a over-the- counter probiotic while you're using the antibiotic. Please continue to monitor the affected area on your left arm. If the redness extends outside the line as its drawn, you have increasing pain, increasing swelling, noticed numbness or tingling, have difficulty ending the elbow or moving the wrist, develop fevers or chills, nausea or vomiting, or you've any other new concerns please return to the ER medially. Please continue all of your other medications as prescribed. Problem Qualifiers Primary Impression: Cellulitis Site of cellulitis: extremity Site of cellulitis of extremity: upper extremity Laterality: left Qualified Codes: L03.114 - Cellulitis of left upper limb
[2016-10-26] MEDS ORDERED: CEPH500C PO (22:29)
[2016-10-26] MEDS ORDERED: WATER, STERILE FOR INJ 10 ML VIAL ONE (22:36)
[2016-10-26 23:10] VITALS: BP 147/94; PULSE 87; O2SAT 92
== END 2016-10-26 23:12 | disposition home or self-care (01) ==
LOC: C.EDB 21:54 → C.EDA 23:12
DX: L03.114 Cellulitis of left upper limb (principal); N17.9 Acute kidney failure, unspecified; I48.91 Unspecified atrial fibrillation; E78.5 Hyperlipidemia, unspecified; J45.909 Unspecified asthma, uncomplicated; K21.9 Gastro-esophageal reflux disease without esophagitis; Z87.442 Personal history of urinary calculi; I10 Essential (primary) hypertension; M16.12 Unilateral primary osteoarthritis, left hip; Z79.82 Long term (current) use of aspirin; Z79.899 Other long term (current) drug therapy

== ENCOUNTER 2017-02-08 02:23 | Emergency (ER) | payer OTHER ==
[~2017-02-08] VITALS: Ht 189.9 cm; Wt 99.0 kg
[~2017-02-08 02:23] MED LIST changes: +CEPH500C PO; -OXYC1TAB3 PO; -PHEN-876 PO; -PROM25TA9 PO; +SODI650T8 PO; -TAMS0.4C38 PO
[2017-02-08 02:33] VITALS: TEMP 36.4; Ht 189.9 cm; Wt 99.0 kg
[2017-02-08] MEDS ORDERED: ALBUT/IPRATROP 3MG/0.5MG NEB 3 ML VIAL INH STA (02:41)
[2017-02-08] MEDS ORDERED: DEXT1CAP PO (03:11)
[2017-02-08] MEDS ORDERED: PRVC/40 PO (03:11)
[2017-02-08 03:19] LABS: BASO % 0.4 %; BASO ABS # 0.03 K/uL (0-0.2); EOS % 4.5 %; EOS ABS # 0.38 K/uL (0-0.5); HEMATOCRIT 46.5 % (42-52); HEMOGLOBIN 16.5 g/dL (14.0-18.0); IG# 0.04 K/uL (0.00-0.02); LYMPH % 30.6 %; LYMPH ABS # 2.57 K/uL (1.2-3.4); MEAN CELL VOLUME 89.4 fL (80-100); MEAN CORPUSCULAR HEMOGLOBIN 31.7 pg (25-34); MEAN CORPUSCULAR HGB CONC 35.5 g/dl (32-36); MEAN PLATELET VOLUME 9.8 fL (7.4-10.4); MONO ABS # 1.01 K/uL (0.11-0.59); NEUT ABS # 4.36 K/uL (1.4-6.5); PLATELET COUNT 174 K/uL (130-400); RED CELL DISTRIBUTION WIDTH CV 12.9 % (11.5-14.5); RED CELL DISTRIBUTION WIDTH SD 42.2 fL (36.4-46.3); WHITE BLOOD COUNT 8.39 K/uL (4.8-10.8)
[2017-02-08] MEDS ORDERED: ALBUTEROL HFA 8 GM INHALER INH STA (03:35)
[2017-02-08] MEDS ORDERED: AZITHROMYCIN 250 MG TAB PO STA (03:35)
[2017-02-08 03:41] LABS: CALCIUM 8.7 mg/dl (8.5-10.1); CREATININE 0.89 mg/dl (0.60-1.40); POTASSIUM 3.9 mmol/L (3.5-5.1)
[2017-02-08 03:48] LABS: INFLUENZA B ANTIGEN Neg for Influ B (NEG)
--- NOTE | 2017-02-08 03:50 | EMERGENCY ROOM VISIT NOTE ---
History First contact with patient: 02:37 Chief Complaint: CONGESTION Stated Complaint: COUGH,LUNG CONGESTION History of Present Illness The patient is a 71 year old male who presents to the Emergency Room with complaints of cough and congestion for the past week who had the flu but that has now resolved but unfortunately the cough lingers and this is what prompts him to come to the ER. Patient denies recent fever. Patient denies chest pain , dyspnea, headache, neck status, sore throat, abdominal pain, leg pain or swelling. No diabetes. He is on a baby aspirin for A. fib. Review of Systems See HPI for pertinent positives & negatives. A total of 10 systems reviewed and were otherwise negative. Past Medical/Surgical History Medical Problems: (1) ARF (acute renal failure) (2) ATRIAL FIBRILLATION (3) Dyslipidemia (4) History of asthma (5) History of cardioversion (6) History of gastroesophageal reflux (GERD) (7) History of renal stone (8) HYPERLIPIDEMIA NEC/NOS (9) HYPERTENSION NOS (10) Osteoarthritis of left hip Surgical Problems: (1) History of appendectomy (2) History of cataract surgery (3) History of rotator cuff surgery (4) History of tonsillectomy Family History Patient reports no known family medical history. Social History Smoking Status: Never Smoker Smokeless Tobacco Use: No Alcohol Use: occasionally Drug Use: none Marital Status: single Occupation Status: retired Current/Historical Medications Scheduled Aspirin (Aspirin Ec), 81 MG PO DAILY Azithromycin (Zithromax), 250 MG PO DAILY Hydrochlorothiazide (Hctz), 25 MG PO DAILY Montelukast Sodium (Singulair), 10 MG PO DAILY Pravastatin Sod (Pravastatin Sodium), 40 MG PO DAILY Sotalol Hcl (Sotalol Hcl), 80 MG PO BID Scheduled PRN Dextromethorphan-Phenylephrine (Daytime Multi Symptom Col), 1 DOSE PO DIRECTED PRN for COLD & COUGH Physical Exam Vital Signs Date Time Temp Pulse Resp B/P (MAP) Pulse Ox O2 Delivery O2 Flow Rate FiO2 02/08/17 03:23 57 21 96 02/08/17 03:08 57 19 99 02/08/17 03:01 164/95 02/08/17 02:53 62 21 94 Room Air 02/08/17 02:53 58 02/08/17 02:49 163/89 02/08/17 02:33 36.4 54 18 159/88 95 Room Air Physical Exam VITALS: Vitals are noted on the nurse's note and reviewed by myself. Vital signs stable. GENERAL: Pleasant male, in no acute distress, nondiaphoretic, well-developed well-nourished. SKIN: The skin was without rashes, erythema, edema, or bruising. There is no tenting of the skin. Capillary reflex less than 2 seconds. HEAD: Normocephalic atraumatic. EARS: External auditory canals clear, tympanic membranes pearly [place] without erythema or effusion bilaterally. EYES: Pupils equal round and reactive to light and accommodation. Conjunctivae without injection, sclerae without icterus. Extraocular movements intact. NOSE: Patent, turbinates without inflammation or discharge. No sinus tenderness. MOUTH: Mucous membranes moist. Pharynx without erythema or exudate. Uvula midline. Airway patent. Tongue does not deviate. NECK: Supple without nuchal rigidity. No lymphadenopathy. No thyromegaly. Cervical spine is nontender. No JVD. HEART: Regular rate and rhythm LUNGS: Mild diffuse end expiratory wheezes, without rales or rhonchi. No dullness to percussion. No retractions or accessory muscle use. ABDOMEN: Positive bowel sounds x 4. Normal tympanic percussion. Soft, nontender, without masses or organomegaly. Rondon sign negative. No guarding or rebound tenderness. MUSCULOSKELETAL: No muscle atrophy, erythema, or edema noted. NEURO: Patient was alert and oriented to person place and time. Normal sensation to light and sharp touch. No focal neurological deficits. Medical Decision & Procedures Laboratory Results 02/08/17 03:05 Red Blood Count 5.20, Mean Corpuscular Volume 89.4, Mean Corpuscular Hemoglobin 31.7, Mean Corpuscular Hemoglobin Concent 35.5, Mean Platelet Volume 9.8, Neutrophils (%) (Auto) 52.0, Lymphocytes (%) (Auto) 30.6, Monocytes (%) (Auto) 12.0, Eosinophils (%) (Auto) 4.5, Basophils (%) (Auto) 0.4, Neutrophils # (Auto ) 4.36, Lymphocytes # (Auto) 2.57, Monocytes # (Auto) 1.01, Eosinophils # (Auto ) 0.38, Basophils # (Auto) 0.03 02/08/17 03:05 Test 02/08/17 02:51 02/08/17 03:05 Influenza Type A Antigen Neg for Influ A (NEG) Influenza Type B Antigen Neg for Influ B (NEG) White Blood Count 8.39 K/uL (4.8-10.8) Red Blood Count 5.20 M/uL (4.7-6.1) Hemoglobin 16.5 g/dL (14.0-18.0) Hematocrit 46.5 % (42-52) Mean Corpuscular Volume 89.4 fL (80-100) Mean Corpuscular Hemoglobin 31.7 pg (25-34) Mean Corpuscular Hemoglobin Concent 35.5 g/dl (32-36) Platelet Count 174 K/uL (130-400) Mean Platelet Volume 9.8 fL (7.4-10.4) Neutrophils (%) (Auto) 52.0 % Lymphocytes (%) (Auto) 30.6 % Monocytes (%) (Auto) 12.0 % Eosinophils (%) (Auto) 4.5 % Basophils (%) (Auto) 0.4 % Neutrophils # (Auto) 4.36 K/uL (1.4-6.5) Lymphocytes # (Auto) 2.57 K/uL (1.2-3.4) Monocytes # (Auto) 1.01 K/uL (0.11-0.59) Eosinophils # (Auto) 0.38 K/uL (0-0.5) Basophils # (Auto) 0.03 K/uL (0-0.2) RDW Standard Deviation 42.2 fL (36.4-46.3) RDW Coefficient of Variation 12.9 % (11.5-14.5) Immature Granulocyte % (Auto) 0.5 % Immature Granulocyte # (Auto) 0.04 K/uL (0.00-0.02) Anion Gap 6.0 mmol/L (3-11) Est Creatinine Clear Calc Drug Dose 90.4 ml/min Estimated GFR () 99.7 Estimated GFR (Non- 86.0 BUN/Creatinine Ratio 21.5 (10-20) Calcium Level 8.7 mg/dl (8.5-10.1) Medications Administered Medications (Trade) Dose Ordered Sig/Vinny Route Start Time Stop Time Status Last Admin Dose Admin Albuterol/ Ipratropium (Duoneb) 3 ml NOW STAT INH 02/08/17 02:41 02/08/17 02:43 DC 02/08/17 02:53 3 ML Albuterol (Ventolin Hfa Inhaler) 2 puffs ONE STAT INH 02/08/17 03:35 02/08/17 03:37 DC 02/08/17 04:07 60 PUFFS Azithromycin (Zithromax Tab) 500 mg NOW STAT PO 02/08/17 03:35 02/08/17 03:37 DC 02/08/17 04:03 500 MG ED Course Prior records/ancillary studies reviewed. Triage Nursing notes reviewed. The patient's history was concerning for cold symptoms. Differential diagnosis: Etiologies such as viral syndrome, otitis, pharyngitis, pneumonia, influenza, meningitis, sepsis, bacteremia, as well as others were entertained. Physical examination: Patient is alert, interactive and speaking in full sentences ER treatment provided: Nebulizer On reassessment the patient felt better. Diagnostics interpreted by me: The labs revealed no leukocytosis. Imaging studies: Chest x-ray with no acute consolidation, pneumothorax or free air per my interpretation This appears to be consistent with bronchitis. Patient's been sick for over a week. I did opt to cover with antibiotics for possible atypical infection as the patient is 71 years old. Patient was neurovascularly and neurologically intact. He is well-appearing. He was not hypoxic. He is tolerating fluids. He was advised to take medications as directed, rest, stay well-hydrated and to follow-up family care in a few days or here in the ER sooner for high fevers, lethargy, difficulty breathing, worsening signs or symptoms or as needed. By the evaluation outlined above emergent etiologies such as otitis, pharyngitis, pneumonia, meningitis, urinary tract infection, sepsis, bacteremia, as well as others were deemed relatively unlikely. Patient had no recent antibiotics. Normal BUN. No fever. The pt informed about the findings as listed above. All questions were answered and pleased with the treatment. Return instructions were outlined and the patient was discharged in stable condition. Outpatient prescription management: Zithromax Referral: The patient was referred back to their primary care physician for follow-up in 2 to 3 days for a recheck of the current condition. Case reviewed with my attending. The chart was completed utilizing [email or web address] voice recognition software. Grammatical errors, random word insertions, pronoun errors, and incomplete sentences are an occassional consequence of this system due to software limitations, ambient noise, and hardware issues. Any formal questions or concerns about the content, text, or information contained within the body of this dictation should be directly addressed to the physician interior design assistant for clarification. Medical Decision As above Medication Reconcilliation Current Medication List: was personally reviewed by me Blood Pressure Screening Patient's blood pressure: Elevated blood pressure Blood pressure disposition: Elevated BP felt to be situational Impression Primary Impression: Bronchitis Departure Information Dispostion Home / Self-Care Condition GOOD Prescriptions Azithromycin (Zithromax) 250 Mg Tab 250 MG PO DAILY for 4 Days, #4 TAB Prov: Bessy Gordon ., JENSEN 02/08/17 Referrals Toro Gonzalez M.D.([facility]) (PCP) Patient Instructions [facility] Additional Instructions Albuterol Inhaler: Take 2 puffs four times daily for five days, then as needed. Azithromycin(Zithromax) 250mg: Take one a day for 4 additional days. All antibiotics can cause diarrhea. If this occurs and you feel worse or it does not resolve in 1-2 days follow up with your doctor or return to the Emergency Department as this could be signs of serious underlying problems. Any medication can cause an allergic reaction, stop the pills immediately and return to the ER for rash, hives, breathing difficulties, or swelling. Acetaminophen(Tylenol) may be used for fever or pain. Use 1000mg every six hours as needed. Avoid using more than 3000mg in a 24 hour period. (AND/OR) Ibuprofen(Motrin, Advil) may be used for fever or pain. Use 600mg every six hours as needed. Take with food. Avoid using more than 2400mg in a 24 hour period. Do not use 2400mg per day for more than three consecutive days without physician direction. Prolonged inappropriate use can lead to stomach upset or ulcers. Afrin nasal spray: 2-3 sprays to each nostril twice daily as needed for congestion. Do not use for more than 3-4 days because it can lead to worsening rebound congestion. Pseudoephedrine(Sudaphed): 30-60mg every 6 hours as needed for nasal congestion. Do not take this with other stimulant products or supplements. Rest and drink plenty of fluids. Controlling your fever with Tylenol and Ibuprofen as above will make you feel better. Wash your hands after nose blowing, sneezing, or coughing. Most germs are spread through contact, therefore improper hygiene may result in your close contacts and loved ones becoming ill just like you. Continue current medications. Return to the ER for severe headache, neck stiffness, chest pain, difficulty breathing, fevers, vomiting, worsening of your condition, or as needed. Follow up with your primary physician this week for a recheck of your current condition.
[2017-02-08] MEDS ORDERED: AZIT250T PO (03:52)
[2017-02-08 03:58] VITALS: PULSE 55; O2SAT 95
--- NOTE | 2017-02-08 03:59 | EMERGENCY ROOM VISIT NOTE ---
ED Visit Note First contact with patient: 02:37 Patient seen and examined at bedside. Reports feeling markedly improved. Verbalized understanding of all results was agreeable with plan.
[2017-02-08 04:00] VITALS: BP 156/90
[2017-02-08 04:29] LABS: INFLUENZA A PCR POS for Influ A (NEG)
[2017-02-08 04:30] LABS: INFLUENZA B PCR Neg for Influ B (NEG)
--- NOTE | 2017-02-08 07:03 | DIAGNOSTIC IMAGING REPORT ---
CHEST 2 VIEWS ROUTINE CLINICAL HISTORY: 71 years-old Male presenting with cough.congestion. TECHNIQUE: PA and lateral views of the chest were obtained. COMPARISON: 04/25/2014. FINDINGS: Atherosclerosis of the aortic arch. Cardiac silhouette normal in size. Lungs and pleural spaces clear. Degenerative changes of the thoracic spine. Upper abdomen normal. IMPRESSION: 1. No acute cardiopulmonary disease. Electronically signed by: Heriberto Peña M.D. 02/08/2017 7:02 AM Dictated Date/Time: 02/08/2017 7:01 AM
== END 2017-02-08 04:10 | disposition home or self-care (01) ==
LOC: C.EDB 02:24
DX: J40 Bronchitis, not specified as acute or chronic (principal); I10 Essential (primary) hypertension; I48.91 Unspecified atrial fibrillation; E78.5 Hyperlipidemia, unspecified; J45.909 Unspecified asthma, uncomplicated; Z87.442 Personal history of urinary calculi; M16.12 Unilateral primary osteoarthritis, left hip; Z98.49 Cataract extraction status, unspecified eye; Z98.890 Other specified postprocedural states; Z79.82 Long term (current) use of aspirin; Z79.899 Other long term (current) drug therapy

== ENCOUNTER 2021-03-27 08:07 | Inpatient (IN) ==
[2021-03-27] MEDS ORDERED: SODIUM CHLORIDE 0.9% 500 ML IV STA (08:44)
[2021-03-27 09:03] LABS: Basophils # (auto) 0.06 K/uL (0-0.2); Basophils % (auto) 0.5 %; Eosinophils # (auto) 0.41 K/uL (0-0.5); Eosinophils % (auto) 3.1 %; Immature Granulocytes # (auto) 0.06 K/uL (0.00-0.02); Immature Granulocytes % (auto) 0.5 %; Lymphocytes # (auto) 1.24 K/uL (1.2-3.4); Lymphocytes % (auto) 9.5 %; Mean Corpuscular Hemoglobin 31.2 pg (25-34); Mean Corpuscular Hgb Conc 34.9 g/dL (32-36); Mean Corpuscular Volume 89.4 fL (80-100); Mean Platelet Volume 9.7 fL (7.4-10.4); Monocytes # (auto) 1.69 K/uL (0.11-0.59); Neutrophils # (auto) 9.59 K/uL (1.4-6.5); Neutrophils % (auto) 73.4 %; Platelet Count 209 K/uL (130-400); RDW Coefficient of Variation 12.6 % (11.5-14.5); RDW Standard Deviation 41.3 fL (36.4-46.3); Red Blood Count 4.81 M/uL (4.7-6.1); White Blood Count 13.05 K/uL (4.8-10.8)
[2021-03-27 09:26] LABS: Appearance Urine Clear (Clear); Bacteria Urine Automated Negative (Negative); Bilirubin Urine Negative (Negative); Blood Urine 3+ (Negative); Color Urine Yellow; Glucose Urine UA Negative (Negative); Ketones Urine Negative (Negative); Leukocyte Esterase Urine Trace (Negative); Nitrite Urine Negative (Negative); Protein Urine Trace (Negative); Specific Gravity Urine 1.013 (1.000-1.030); Urobilinogen Urine Negative (Negative)
--- NOTE | 2021-03-27 09:27 | CT Scan Report ---
CT SCAN OF THE ABDOMEN AND PELVIS WITHOUT IV CONTRAST CLINICAL HISTORY: Left lower quadrant/flank pain. COMPARISON STUDY: Abdominal CT dated 07/05/2016. TECHNIQUE: CT scan of the abdomen and pelvis is performed from the lung bases to the proximal femora. Images are reviewed in the axial, sagittal, and coronal planes. IV contrast was not administered for this examination. A dose lowering technique was utilized adhering to the principles of ALARA. CT DOSE: 984.23 mGy.cm FINDINGS: Lung bases: The heart is normal in size and without pericardial effusion. The coronary arteries and a ortic valve leaflets are densely calcified. There is a small hiatal hernia. The lung bases are clear. Liver: The unenhanced liver is normal in size, contour, and attenuation. There is no intrahepatic mallory iary ductal dilatation. Gallbladder: Contracted. Spleen: Normal in size and attenuation. Pancreas: The unenhanced pancreas is moderately atrophic and grossly unremarkable. Adrenal glands: Unremarkable. Kidneys: The unenhanced kidneys demonstrate mild cortical atrophy. The left kidney is edematous. Ther e are 3 obstructing calculi in the proximal to mid left ureter at the level of L4-L5 which measure up to 11 mm. These are best seen on axial image #258 and cause moderate to severe left hydroureteroneph rosis. There is associated left-sided perinephric stranding and fluid. There are least 4 additional p unctate nonobstructing left renal calculi. No right renal calculi are seen. There is mild fullness of the right renal collecting system without hydronephrosis. Scattered renal cysts measure up to 3 cm. Abdominal vasculature: The abdominal aorta is normal in course and caliber noting moderate to advance d atherosclerotic calcification. Bowel: There is mild to moderate colonic diverticulosis without CT evidence of acute diverticulitis. No bowel obstruction is seen. Fecal retention is noted throughout the colon. The appendix is not jack ntified and reported surgically absent. Peritoneum: There is no intraperitoneal free air or abdominal ascites. There is a large fat-containin g umbilical hernia. There is asymmetric atrophy of the left iliopsoas musculature. Lymphadenopathy: None. Pelvic viscera: Evaluation of the pelvis is degraded by streak artifact from a left hip arthroplasty. The prostate gland is enlarged and heterogeneous noting median lobe hypertrophy. The bladder wall ap pears mildly thickened/trabeculated indicating chronic outlet obstruction. There are bilateral fat-co ntaining inguinal hernias, right larger than left. Skeletal structures: The skeletal structures are osteopenic. There is moderate lumbosacral spondylosi s. No lytic or blastic lesions are seen. A left hip arthroplasty is in place. There are healed left-s ided rib fractures. IMPRESSION: 1. There are 3 obstructing calculi in the proximal to mid left ureter which measure up to 11 mm. This causes moderate to severe left hydroureteronephrosis. 2. Additional punctate nonobstructing left renal calculi as above. 3. No right renal calculi are seen. 4. Prostatomegaly with evidence of chronic bladder outlet obstruction. 5. Colonic diverticulosis without CT evidence of acute diverticulitis. 6. Advanced coronary artery calcification. 7. Additional findings as above. ACT 112: Negative or not required by law. Electronically signed by: Yunior Blackwood M.D. 03/27/2021 9:25 AM
[2021-03-27 09:28] LABS: Troponin I < 0.03 ng/ml (0-0.04)
[2021-03-27 09:46] LABS: Alanine Aminotransferase 14 U/L (7-52); Albumin Level 3.5 gm/dl (3.4-5.0); Alkaline Phosphatase 58 U/L (34-104); Anion Gap 13 (3-11); Aspartate Aminotransferase 14 U/L (13-39); BUN Creatinine Ratio 15.3 (10-20); Bilirubin,Total 0.5 mg/dl (0.2-1.0); Blood Urea Nitrogen 105 mg/dl (6-23); Calcium 8.7 mg/dl (8.5-10.1); Carbon Dioxide 19 mmol/L (21-32); Chloride 104 mmol/L (98-107); Creatinine Clr Calc Pharmacy 12.1 ml/min; Est GFR (African American) 8.3 ml/min; Est GFR (Non-African American) 7.2 ml/min; Globulin 3.6 gm/dl (2.5-4.0); Glucose 103 mg/dl (70-99(Fasting)); Lipase 27 U/L (11-82); Potassium 4.4 mmol/L (3.5-5.1); Sodium 136 mmol/L (136-145); Total Protein 7.1 gm/dl (6.0-8.3)
[2021-03-27] MEDS ORDERED: SODIUM CHLORIDE 0.9% 1000ML 1,000 ML IV ONE (09:49)
[2021-03-27] MEDS ORDERED: SODIUM CHLORIDE 0.9% 1000ML 1,000 ML IV SCH (10:00)
--- NOTE | 2021-03-27 10:06 | Emergency Department Note ---
History of Present Illness General Chief complaint: Kidney Stone Stated complaint: KIDNEY STONE Time Seen by Provider: 03/27/21 08:28 History of Present Illness Maximum Pain Intensity: 2 75-year-old male presents to the ED with a chief complaint of left-sided back and abdominal pain. The patient states that he initially started having the symptoms about 12 days ago. Started with 12 h of hematuria that resolved on its own. His pain is in the left flank and left lower quadrant. He also states that he felt a little bloated and had some chills. Ibuprofen. It seems to be helping the pain. He has been taking about 6 ibuprofen tablets a day. Denies any other complaints at this time. Nothing makes it worse Home Medications Medication Instructions Recorded Confirmed Type apixaban 5 mg tablet (Eliquis) 5 mg PO BID 03/27/21 03/27/21 History hydrochlorothiazide 25 mg tablet 25 mg PO QAM 03/27/21 03/27/21 History montelukast 10 mg tablet 10 mg PO HS 03/27/21 03/27/21 History pravastatin 40 mg tablet 40 mg PO HS 03/27/21 03/27/21 History sotalol 80 mg tablet (Sotalol AF) 80 mg PO BID 03/27/21 03/27/21 History Allergies Allergy/AdvReac Type Severity Reaction Status Date / Time hydromorphone Allergy Severe POSSIBLE Verified 03/27/21 09:41 ANGIOEDEMA shellfish derived Allergy Severe CONCH-HIVES Verified 03/27/21 09:41 ragweed pollen Allergy Intermediate SNEEZING, Verified 03/27/21 09:41 RUNNY NOSE halothane Allergy Verified 03/27/21 10:07 succinylcholine Allergy Verified 03/27/21 10:07 Dust Allergy Intermediate SNEEZING, Uncoded 03/27/21 09:41 RUNNY NOSE Past Med/Surg History Social History Smoking Status: Never smoker Feels Safe at Home: Yes Review of Systems A total of 10 systems reviewed and were otherwise negative Physical Exam Vital Signs Vital Signs - 24 hr 03/27/21 08:13 03/27/21 08:53 03/27/21 08:55 Temperature 36.7 C Temperature Source Skin Pulse Rate 53 L Pulse Rate [Apical] 51 L Respiratory Rate 18 16 Blood Pressure 171/85 H Blood Pressure [Left Arm] 141/83 H Blood Pressure Mean 113 Blood Pressure Mean [Left Arm] 102 Pulse Oximetry 96 97 Oxygen Delivery Method Room Air Room Air Room Air Sepsis Recent Fever Within 48 Hours No Sepsis New/Unexplained Change in Mental Status No Sepsis Action Taken by Nursing No Action Required CONSTITUTIONAL/VITAL SIGNS: Reviewed / noted above. GENERAL: Non-toxic in appearance. INTEGUMENTARY: Warm, dry, and [place]. HEAD: Normocephalic. EYES: without scleral icterus or trauma. ENT/OROPHARYNX: clear and moist. LYMPHADENOPATHY/NECK: Is supple without lymphadenopathy or meningismus. RESPIRATORY: Clear to auscultation bilaterally. No increased work of breathing. CARDIOVASCULAR: Regular rate and rhythm. GI/ABDOMEN: Soft and nontender. No organomegaly or pulsatile mass. EXTREMITIES: Warm and well perfused. BACK: No CVA tenderness. NEUROLOGICAL: Intact without focal deficits. PSYCHIATRIC: normal affect. MUSCULOSKELETAL: Normally developed with good muscle tone. TRIAGE NURSING DOCUMENTATION REVIEWED. Course Administered Medications Sodium Chloride (Nss 1000ml) 1,000 mls @ 999 mls/hr IV .Q1H1M ONE Stop: 03/27/21 10:49 Last Admin: 03/27/21 09:54 Dose: 999 mls/hr Documented by: [id number] Sodium Chloride (Nss 1000ml) 1,000 mls @ 125 mls/hr IV .Q8H TRAY Stop: 04/26/21 09:59 Last Admin: 03/27/21 09:54 Dose: 125 mls/hr Documented by: [id number] Discontinued Medications Sodium Chloride (Nss) 500 mls @ 999 mls/hr IV .Q31M STA Stop: 03/27/21 09:14 Last Infusion: 03/27/21 09:51 Dose: 0 mls/hr Documented by: [id number] Admin: 03/27/21 08:56 Dose: 999 mls/hr Documented by: [id number] Medical Decision Making Differential Diagnosis Differential considered: pancreatitis, hepatitis, acute cholecystitis, AAA, UTI, pyelonephritis, kidney stones, appendicitis, diverticulitis, shingles, bowel obstruction, mesenteric ischemia, intussusception,hernia, testicular torsion, ovarian torsion, ruptured ovarian cyst,ectopic , . Medical Records Attestation: I reviewed the patient's medical records. Home Medications Current Medication List: was personally reviewed by me Laboratory Data Attestation: I reviewed the patient's lab results. Result diagrams: 03/27/21 08:52 03/27/21 08:52 Lab Results 03/27/21 03/27/21 03/27/21 Range/Units 08:52 08:52 09:14 WBC 13.05 H (4.8-10.8) K/uL RBC 4.81 (4.7-6.1) M/uL Hgb 15.0 (14.0-18.0) g/dL Hct 43.0 (42-52) % MCV 89.4 (80-100) fL MCH 31.2 (25-34) pg MCHC 34.9 (32-36) g/dL RDW Std Deviation 41.3 (36.4-46.3) fL RDW Coeff of Heraclio 12.6 (11.5-14.5) % Plt Count 209 (130-400) K/uL MPV 9.7 (7.4-10.4) fL Immature Gran % (Auto) 0.5 % Neut % (Auto) 73.4 % Lymph % (Auto) 9.5 % [place] % (Auto) 13.0 % Eos % (Auto) 3.1 % Baso % (Auto) 0.5 % Neut # (Auto) 9.59 H (1.4-6.5) K/uL Lymph # (Auto) 1.24 (1.2-3.4) K/uL [place] # (Auto) 1.69 H (0.11-0.59) K/uL Eos # (Auto) 0.41 (0-0.5) K/uL Baso # (Auto) 0.06 (0-0.2) K/uL Immature Gran # (Auto) 0.06 H (0.00-0.02) K/uL Sodium 136 (136-145) mmol/L Potassium 4.4 (3.5-5.1) mmol/L Chloride 104 (98-107) mmol/L Carbon Dioxide 19 L (21-32) mmol/L Anion Gap 13 H (3-11) BUN 105 H (6-23) mg/dl Creatinine 6.85 H* (0.6-1.4) mg/dl Est Cr Clr Drug Dosing 12.1 ml/min Est GFR ( Amer) 8.3 ml/min Est GFR (Non-Af Amer) 7.2 ml/min BUN/Creatinine Ratio 15.3 (10-20) Glucose 103 H (70-99(Fasting)) mg/dl Calcium 8.7 (8.5-10.1) mg/dl Total Bilirubin 0.5 (0.2-1.0) mg/dl AST 14 (13-39) U/L ALT 14 (7-52) U/L Alkaline Phosphatase 58 (34-104) U/L Troponin I < 0.03 (0-0.04) ng/ml Total Protein 7.1 (6.0-8.3) gm/dl Albumin 3.5 (3.4-5.0) gm/dl Globulin 3.6 (2.5-4.0) gm/dl Albumin/Globulin Ratio 1.0 (0.9-2) Lipase 27 (11-82) U/L Urine Color Yellow Urine Appearance Clear (Clear) Urine pH 5.0 (4.5-7.5) Ur Specific [place] 1.013 (1.000-1.030) Urine Protein Trace H (Negative) Urine Glucose (UA) Negative (Negative) Urine Ketones Negative (Negative) Urine Blood 3+ H (Negative) Urine Nitrite Negative (Negative) Urine Bilirubin Negative (Negative) Urine Urobilinogen Negative (Negative) Ur Leukocyte Esterase Trace H (Negative) Urine WBC (Auto) 5-10 H (0-5) /hpf Urine RBC (Auto) 10-30 H (0-4) /hpf U Hyaline Cast (Auto) 1-5 (0-5) /lpf U Epithel Cells (Auto) 10-20 H (0-5) /lpf Urine Bacteria (Auto) Negative (Negative) Imaging Data Radiologist's Impression: Abdomen/Pelvis CT 03/27/21 08:39 CT SCAN OF THE ABDOMEN AND PELVIS WITHOUT IV CONTRAST CLINICAL HISTORY: Left lower quadrant/flank pain. COMPARISON STUDY: Abdominal CT dated 07/05/2016. TECHNIQUE: CT scan of the abdomen and pelvis is performed from the lung bases to the proximal femora. Images are reviewed in the axial, sagittal, and coronal planes. IV contrast was not administered for this examination. A dose lowering technique was utilized adhering to the principles of ALARA. CT DOSE: 984.23 mGy.cm FINDINGS: Lung bases: The heart is normal in size and without pericardial effusion. The coronary arteries and aortic valve leaflets are densely calcified. There is a small hiatal hernia. The lung bases are clear. Liver: The unenhanced liver is normal in size, contour, and attenuation. There is no intrahepatic biliary ductal dilatation. Gallbladder: Contracted. Spleen: Normal in size and attenuation. Pancreas: The unenhanced pancreas is moderately atrophic and grossly unremarkable. Adrenal glands: Unremarkable. Kidneys: The unenhanced kidneys demonstrate mild cortical atrophy. The left kidney is edematous. There are 3 obstructing calculi in the proximal to mid left ureter at the level of L4-L5 which measure up to 11 mm. These are best seen on axial image #258 and cause moderate to severe left hydroureteronephrosis. There is associated left-sided perinephric stranding and fluid. There are least 4 additional punctate nonobstructing left renal calculi. No right renal calculi are seen. There is mild fullness of the right renal collecting system without hydronephrosis. Scattered renal cysts measure up to 3 cm. Abdominal vasculature: The abdominal aorta is normal in course and caliber noting moderate to advanced atherosclerotic calcification. Bowel: There is mild to moderate colonic diverticulosis without CT evidence of acute diverticulitis. No bowel obstruction is seen. Fecal retention is noted throughout the colon. The appendix is not identified and reported surgically absent. Peritoneum: There is no intraperitoneal free air or abdominal ascites. There is a large fat-containing umbilical hernia. There is asymmetric atrophy of the left iliopsoas musculature. Lymphadenopathy: None. Pelvic viscera: Evaluation of the pelvis is degraded by streak artifact from a left hip arthroplasty. The prostate gland is enlarged and heterogeneous noting median lobe hypertrophy. The bladder wall appears mildly thickened/trabeculated indicating chronic outlet obstruction. There are bilateral fat-containing inguinal hernias, right larger than left. Skeletal structures: The skeletal structures are osteopenic. There is moderate lumbosacral spondylosis. No lytic or blastic lesions are seen. A left hip arthroplasty is in place. There are healed left-sided rib fractures. IMPRESSION: 1. There are 3 obstructing calculi in the proximal to mid left ureter which measure up to 11 mm. This causes moderate to severe left hydroureteronephrosis. 2. Additional punctate nonobstructing left renal calculi as above. 3. No right renal calculi are seen. 4. Prostatomegaly with evidence of chronic bladder outlet obstruction. 5. Colonic diverticulosis without CT evidence of acute diverticulitis. 6. Advanced coronary artery calcification. 7. Additional findings as above. ACT 112: Negative or not required by law. Electronically signed by: Yunior Blackwood M.D. 03/27/2021 9:25 AM MDM Narrative 75-year-old male presents with left flank and left lower quadrant abdominal pain. CT scan shows 3 ureteral stones causing moderate to severe obstruction. The BUN is 105 and the creatinine is 6.85. He normally has a creatinine of 1 or less. EKG shows a normal sinus rhythm. Troponin was negative. CBC and chemi stry panel was unremarkable with exception of a white blood cell count of 13. Urine does not show infection. The patient was hydrated with IV fluids. He did not need anything for the pain right now. He will be seen by the hospitalist for further inpatient evaluation and care. Impression & Plan DONNY (acute kidney injury), Acute uremia, Calculus, ureteral, Hydronephrosis concurrent with and due to calculi of kidney and ureter Discharge Plan Visit Data Chief Complaint: Kidney Stone Stated Complaint: KIDNEY STONE ED Provider: Favian Mendez Discharge Problem: DONNY (acute kidney injury), Acute uremia, Calculus, ureteral, Hydronephrosis concurrent with and due to calculi of kidney and ureter Patient Disposition: Being Evaluated by Hospitalist Forms Stand Alone Forms: My [facility] [place] [employer] Prescriptions Prescriptions: No Action pravastatin 40 mg tablet 40 mg PO HS RF: 0 sotalol [Sotalol AF] 80 mg tablet 80 mg PO BID RF: 0 montelukast 10 mg tablet 10 mg PO HS RF: 0 hydrochlorothiazide 25 mg tablet 25 mg PO QAM RF: 0 Eliquis 5 mg tablet 5 mg PO BID RF: 0 Referrals Referrals: Toro Gonzalez MD [Primary Care Provider] -
--- NOTE | 2021-03-27 10:19 | History & Physical Report ---
Date of Service March 27, 2021 Assessment & Plan (1) Hydronephrosis concurrent with and due to calculi of kidney and ureter: (2) ARF (acute renal failure): (3) PAF (paroxysmal atrial fibrillation): (4) HTN (hypertension): (5) Dyslipidemia: Plan: This is a 75 yr old M who has a significant PMH of PAF on eliquis, HTN, HLD, allergic rhinitis, ckd 3 who presents to ED due to L flank pain and hematuria x 12 days Obstructing calculi x3 in proximal to mid left ureter, measuring 11 mm, with moderate to severe hydronephrosis Acute renal failure on CKD-3 -likely postobstructive in setting of calculi as well as poor intake Admit to Med Surg Consult urology Remain n.p.o. until seen and evaluated by urology Hold Eliquis, last dose this morning, until discussed with urology Continue IV fluids, NS 150/h Flomax 0.4 mg daily IV acetaminophen mild pain, IV morphine severe pain baseline cr 1.5, bun/cr 105/6.85 Monitor renal function electrolytes, likely to improve with hydration and treatment of kidney stone no indication for empiric antibiotics at this time as he is afebrile, no s/sx of sepsis and urine benign obtain ekg, cxr PAF On sotalol and Eliquis rate/rhythm controlled, bradycardic - pt reports as chronic HTN BP mildly elevated, likely situational Hold HCTZ in setting of acute renal failure HLD Continue statin DVT ppx: scd/teds, on eliquis will hold until discussed with urology Dispo: Med Surg, likely to made hospitalized 1 to 2 days, likely to discharge to home Full code PCP: Sudhakar Patient was seen and examined in collaboration with Dr. Turner, please see addendum The chart was completed utilizing [employer] Speech voice recognition software. Grammatical errors, random word insertions, pronoun errors, and incomplete sentences are an occasional consequence of this system due to software limitations, ambient noise, and hardware issues. Any formal questions or concerns about the content, text, or information contained within the body of this dictation should be directly addressed to the provider for clarification. History of Present Illness Chief Complaint: L flank pain and hematuria x 12 days. Primary Care Provider: Tayo De La Fuente MD This is a 75 yr old M who has a significant PMH of PAF on eliquis, HTN, HLD, allergic rhinitis, ckd 3 who presents to ED due to L flank pain and hematuria x 12 days. Approximately 12 days ago he noted significant amount of hematuria in urine. After 12 hours this resolved. He further developed left flank pain as well as generalized abdominal pain. Pain eventually would localize to left upper and left lower quadrant. He was taking [id number] ibuprofen 4-6 times a day with relief. Pain was located in left flank and would radiate to left upper abdomen. He described pain as an ache. "It was not that painful, and therefore I thought this was nothing major." He further complained of feeling chilled, weak and overall poor appetite. He has had significant decrease in oral intake as well as liquids. He has noticed decrease in urination but feels this is secondary to lack of oral intake. He denies any dysuria or further hematuria. He denies documented fever, lightheadedness, dizziness, chest pain, shortness of breath, cough, URI symptoms, melena or hematochezia. He does take Eliquis for A. fib and his last dose was this morning. He has not had nothing to eat or drink yet this morning. He does have a prior history of kidney stones requiring lithotripsy. He admits to being very active at baseline. Despite recent illness he feels he is able to ambulate a flight of stairs without any chest pain or shortness of breath. He feels cardiovascularly he is in, "good shape." In ED he remained hemodynamically stable w/o signs of sx of sepsis. He was found to have mild leukocytosis with WBC 13 K, acute renal failure with BUN 105, creatinine 6.[address] abdomen pelvis with 3 obstructing calculi in the proximal to mid left ureter measuring up to 11 mm. This is causing moderate to severe left hydronephrosis. In ED he received IV fluids. Allergies Allergy/AdvReac Type Severity Reaction Status Date / Time hydromorphone Allergy Severe POSSIBLE Verified 03/27/21 09:41 ANGIOEDEMA shellfish derived Allergy Severe CONCH-HIVES Verified 03/27/21 09:41 ragweed pollen Allergy Intermediate SNEEZING, Verified 03/27/21 09:41 RUNNY NOSE halothane Allergy Verified 03/27/21 10:07 succinylcholine Allergy Verified 03/27/21 10:07 Dust Allergy Intermediate SNEEZING, Uncoded 03/27/21 09:41 RUNNY NOSE Home Medications Medication Instructions Recorded Confirmed Type apixaban 5 mg tablet (Eliquis) 5 mg PO BID 03/27/21 03/27/21 History hydrochlorothiazide 25 mg tablet 25 mg PO QAM 03/27/21 03/27/21 History montelukast 10 mg tablet 10 mg PO HS 03/27/21 03/27/21 History pravastatin 40 mg tablet 40 mg PO HS 03/27/21 03/27/21 History sotalol 80 mg tablet (Sotalol AF) 80 mg PO BID 03/27/21 03/27/21 History Past Med/Surg History Medical History CKD (chronic kidney disease) stage 3, GFR 30-59 ml/min Dyslipidemia History of asthma History of cardioversion "A fib to NSR, 2004" History of gastroesophageal reflux (GERD) History of renal stone HTN (hypertension) New onset atrial fibrillation Osteoarthritis of left hip PAF (paroxysmal atrial fibrillation) Surgical History History of appendectomy History of cataract surgery History of left hip replacement History of rotator cuff surgery History of tonsillectomy Family History Father Prostate cancer Mother Hypertension Social History Smoking Status: Never smoker Hx Alcohol Use: No Hx Substance Use: No Preferred Language: Belarusian Communication Ability: Effective marital status: current 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 Normal insp/exp effort, no accessory muscle use Cardiovascular: Bradycardic rate, regular rhythm, 1/6 MARIA ELENA noted RUSB,no murmur, no edema Vessels: no JVD or carotid bruit Chest: normal inspection of chest Abdomen: normal bowel sounds, soft, nontender, no flank pain Musculoskeletal: no cyanosis or clubbing, active range of motion x4 Skin: no rashes, warm and dry normal turgor Neurologic: PERRL, EOMI, accommodation nl, no face palsy, no dysarthria CN's II-XI intact bilaterally and moves all extremities Psychiatric: A+Ox3, euthymic affect : deferred Results & Data Results & Data ([facility]) Vital Signs (Past 12 Hours) Vital Signs Temp Pulse Pulse Resp BP BP Pulse Ox 03/27/21 08:55 51 L 16 141/83 H 97 03/27/21 08:13 36.7 C 53 L 18 171/85 H 96 Diagnostic Findings Abdomen/Pelvis CT 03/27/21 08:39 CT SCAN OF THE ABDOMEN AND PELVIS WITHOUT IV CONTRAST CLINICAL HISTORY: Left lower quadrant/flank pain. COMPARISON STUDY: Abdominal CT dated 07/05/2016. TECHNIQUE: CT scan of the abdomen and pelvis is performed from the lung bases to the proximal femora. Images are reviewed in the axial, sagittal, and coronal planes. IV contrast was not administered for this examination. A dose lowering technique was utilized adhering to the principles of ALARA. CT DOSE: 984.23 mGy.cm FINDINGS: Lung bases: The heart is normal in size and without pericardial effusion. The c oronary arteries and aortic valve leaflets are densely calcified. There is a small hiatal hernia. The lung bases are clear. Liver: The unenhanced liver is normal in size, contour, and attenuation. There is no intrahepatic biliary ductal dilatation. Gallbladder: Contracted. Spleen: Normal in size and attenuation. Pancreas: The unenhanced pancreas is moderately atrophic and grossly unremarka ble. Adrenal glands: Unremarkable. Kidneys: The unenhanced kidneys demonstrate mild cortical atrophy. The left kidney is edematous. There are 3 obstructing calculi in the proximal to mid left ureter at the level of L4-L5 which measure up to 11 mm. These are best seen on axial image #258 and cause moderate to severe left hydroureteronephrosis. There is associated left-sided perinephric stranding and fluid. There are least 4 additional punctate nonobstructing left renal calculi. No right renal calculi are seen. There is mild fullness of the right renal collecting system without hydronephrosis. Scattered renal cysts measure up to 3 cm. Abdominal vasculature: The abdominal aorta is normal in course and caliber noting moderate to advanced atherosclerotic calcification. Bowel: There is mild to moderate colonic diverticulosis without CT evidence of acute diverticulitis. No bowel obstruction is seen. Fecal retention is noted throughout the colon. The appendix is not identified and reported surgically absent. Peritoneum: There is no intraperitoneal free air or abdominal ascites. There is a large fat-containing umbilical hernia. There is asymmetric atrophy of the left iliopsoas musculature. Lymphadenopathy: None. Pelvic viscera: Evaluation of the pelvis is degraded by streak artifact from a left hip arthroplasty. The prostate gland is enlarged and heterogeneous noting median lobe hypertrophy. The bladder wall appears mildly thickened/trabeculated indicating chronic outlet obstruction. There are bilateral fat-containing inguinal hernias, right larger than left. Skeletal structures: The skeletal structures are osteopenic. There is moderate lumbosacral spondylosis. No lytic or blastic lesions are seen. A left hip arthroplasty is in place. There are healed left-sided rib fractures. IMPRESSION: 1. There are 3 obstructing calculi in the proximal to mid left ureter which measure up to 11 mm. This causes moderate to severe left hydroureteronephrosis. 2. Additional punctate nonobstructing left renal calculi as above. 3. No right renal calculi are seen. 4. Prostatomegaly with evidence of chronic bladder outlet obstruction. 5. Colonic diverticulosis without CT evidence of acute diverticulitis. 6. Advanced coronary artery calcification. 7. Additional findings as above. ACT 112: Negative or not required by law. Electronically signed by: Yunior Blcakwood M.D. 03/27/2021 9:25 AM CXR: [facility] [place] [phone] XRay Report Patient:SHANTAL KAMARA Admit Date:03/27/21 MR#:[id number] Address1:[address] [facility] Acct ID:[id number] Address2: Date:[address] [facility] Zip:[place] [address] Age:75 Location:ED Sex:M Room/Bed: Att Phy: Diagnosis:KIDNEY STONE Marissa Phy:Tayo De La Fuente MD Service Date:03/27/21 [facility] Phy: Interpreting Phy:Yunior Blackwood MDAdmit Phy: Ordering Phy:Carolyne Byers PA-C cc: ~ SINGLE VIEW CHEST CLINICAL HISTORY: Preoperative examination. Nephrolithiasis. FINDINGS: An AP, portable, upright chest radiograph is compared to study dated 02/08/2017. The heart is top normal for projection noting atherosclerotic calcification of the thoracic aorta. There is mild bibasilar atelectasis. No airspace consolidation or large pleural effusion is identified. No pneumothorax is seen. The skeletal structures are osteopenic. The bony thorax is grossly intact. Degenerative change is noted in the shoulders and thoracic spine. IMPRESSION: No active disease in the chest. Medications Administered Medication List Sodium Chloride (Nss 1000ml) 1,000 mls @ 999 mls/hr IV .Q1H1M ONE Stop: 03/27/21 10:49 Last Admin: 03/27/21 09:54 Dose: 999 mls/hr Documented by: [id number] Sodium Chloride (Nss 1000ml) 1,000 mls @ 125 mls/hr IV .Q8H TRAY Stop: 04/26/21 09:59 Last Admin: 03/27/21 09:54 Dose: 125 mls/hr Documented by: [id number] Discontinued Medications Sodium Chloride (Nss) 500 mls @ 999 mls/hr IV .Q31M STA Stop: 03/27/21 09:14 Last Infusion: 03/27/21 09:51 Dose: 0 mls/hr Documented by: [id number] Admin: 03/27/21 08:56 Dose: 999 mls/hr Documented by: [id number] ECG Rate (beats per minute): 49 Rhythm: sinus bradycardia Findings: + RBBB COVID-19 Results Results COVID-19 Adm Lab Results: RBC 4.81 M/uL (4.7-6.1) 03/27/21 WBC 13.05 K/uL (4.8-10.8) H 03/27/21 Hgb 15.0 g/dL (14.0-18.0) 03/27/21 Hct 43.0 % (42-52) 03/27/21 Plt Count 209 K/uL (130-400) 03/27/21 Neutrophils (%) (Auto) 73.4 % 03/27/21 Lymphocytes (%) (Auto) 9.5 % 03/27/21 Monocytes # (Auto) 1.69 K/uL (0.11-0.59) H 03/27/21 Eosinophils # (Auto) 0.41 K/uL (0-0.5) 03/27/21 Immature Granulocyte % (Auto) 0.5 % 03/27/21 Neutrophils # (Auto) 9.59 K/uL (1.4-6.5) H 03/27/21 Lymphocytes # (Auto) 1.24 K/uL (1.2-3.4) 03/27/21 Monocytes # (Auto) 1.69 K/uL (0.11-0.59) H 03/27/21 Eosinophils # (Auto) 0.41 K/uL (0-0.5) 03/27/21 Basophils # (Auto) 0.06 K/uL (0-0.2) 03/27/21 Immature Granulocyte # (Auto) 0.06 K/uL (0.00-0.02) H 03/27/21 Na 136 mmol/L (136-145) 03/27/21 K 4.4 mmol/L (3.5-5.1) 03/27/21 Cl 104 mmol/L (98-107) 03/27/21 CO2 19 mmol/L (21-32) L 03/27/21 Anion Gap 13 (3-11) H 03/27/21 BUN 105 mg/dl (6-23) H 03/27/21 Creatinine 6.85 mg/dl (0.6-1.4) H* 03/27/21 BUN/Creatinine Ratio 15.3 (10-20) 03/27/21 Glucose Level 103 mg/dl (70-99(Fasting)) H 03/27/21 Ca 8.7 mg/dl (8.5-10.1) 03/27/21 Total Bilirubin 0.5 mg/dl (0.2-1.0) 03/27/21 AST/SGOT 14 U/L (13-39) 03/27/21 ALT/SGPT 14 U/L (7-52) 03/27/21 Alkaline Phosphatase 58 U/L (34-104) 03/27/21 Total Protein 7.1 gm/dl (6.0-8.3) 03/27/21 Albumin 3.5 gm/dl (3.4-5.0) 03/27/21 Globulin 3.6 gm/dl (2.5-4.0) 03/27/21 Albumin/Globulin Ratio 1.0 (0.9-2) 03/27/21 Troponin I < 0.03 ng/ml (0-0.04) 03/27/21 SARS-CoV-2, RNA, NAAT NEGATIVE (NEGATIVE) 03/27/21 Chest X-Ray 03/27/21 Code Status & VTE Plan Code Status Full code VTE Prophylaxis Plan VTE Prophylaxis will be ordered: Yes Supervising Physician Co-Signing Physician Notes Attending addendum: I have discussed the case with Carolyne Byers PA-C. I have reviewed her note and agree with her documentation.In summary, this is a 75 year old male with PMH of PAF on eliquis and sotalol, hypertension, h/o uric acid urolithiasis who presented to the ED today with left flank pain for 12 days. Also had hematuria 12 days back which stopped spontaneously within a day with no recurrence. No fever, chills, nausea, vomiting, dysuria. He was taking OTC ibuprofen for upto 6 pills a day for pain. Also having decreased oral intake and decreased urine output. In the ED he was afebrile, hemodynamically stable. Pain is controlled. Not in acute distress. Found to have left ureteral calculi with moderate to severe hydronephrosis along with DONNY with Cr up to 6.8 from his baseline of around 1.5. No uremic symptoms. UA doesn't suggest UTI. Hospitalist service was consulted for admission. Seen by urology and plan for OR today. Physical exam General: Lying comfortably in bed, not in distress, on room air HEENT: EOMI, ANEUDY, MMM Chest: Clear breath sounds bilaterally, no wheezes or crackles CVS: Bradycardia, normal heart sounds Abdomen: Soft, non tender, not distended, normal bowel sounds Neuro: Awake, alert, oriented, conversing well, non focal Extremities: No cyanosis, clubbing or edema Assessment/plan: 1. Left ureteral calculi with moderate to severe hydronephrosis- CT reviewed, labs reviewed. Plan for OR today per urology. Further management per uro. NPO, pain management. 2. DONNY- likely from combination of obstruction along with NSAIDs use and decreased oral intake. Continue IVF, avoid NSAIDs. OR today for stone removal 3. PAF- currently NSR. continue sotalol. Hold Eliquis until safe per urology. Last dose was this morning. 4. HTN- BP mildly elevated. Holding HCTZ in setting of DONNY 5. HLD- on statin Kong Turner MD, FACP. 03/27/21
--- NOTE | 2021-03-27 11:05 | XRay Report ---
SINGLE VIEW CHEST CLINICAL HISTORY: Preoperative examination. Nephrolithiasis. FINDINGS: An AP, portable, upright chest radiograph is compared to study dated 02/08/2017. The heart is top normal for projection noting atherosclerotic calcification of the thoracic aorta. There is mild bibasilar atelectasis. No airspace consolidation or large pleural effusion is identified. No pneumoth orax is seen. The skeletal structures are osteopenic. The bony thorax is grossly intact. Degenerative change is noted in the shoulders and thoracic spine. IMPRESSION: No active disease in the chest. ACT 112: Negative or not required by law. Electronically signed by: Yunior Blackwood M.D. 03/27/2021 11:04 AM
--- NOTE | 2021-03-27 11:08 | Urology Consultation ---
Date of Consultation March 27, 2021 Assessment & Plan (1) Calculus of proximal left ureter: (2) DONNY (acute kidney injury): (3) Hydronephrosis concurrent with and due to calculi of kidney and ureter: 75 yo M admitted for left flank pain and DONNY secondary to obstructing left proximal ureteral stones with hydronephrosis. - Patient afebrile, nontoxic. - Lab work reviewed - creatinine 6.85 (baseline ~1.5 per outpt records), WBC 13.05. - UA 5-10 WBCs, 10-30 RBCs, negative for bacteria and nitrates. No urine culture pending. - CTAP reviewed and notable for 3 obstructing stones in left proximal to mid ureter with hydronephrosis. - Discussed options for stone management including placement of left ureteral stent acutely. He is agreeable. - Findings reviewed with Dr. Lewis, urologist institutional nutrition consultant. - Given his DONNY and hydronephrosis in the context of 3 obstructing left proximal ureteral stones, will proceed with OR for cystoscopy, left stent placement. - Risks and benefits to be reviewed with patient by Dr. Lewis. OR notified. Covid testing negative. - Will cover with 2G of Ancef IV preoperatively per Dr. Lewis. - Keep NPO for procedure. - Continue supportive care and management per hospital medicine. Supervising Physician Co-Signing Physician Notes I have discussed Mr. Wadsworth's case with VAUGHN Linares and agree with the above documentation. CT scan shows a stack of stones in the mid left ureter with associated hydronephrosis. Right kidney is mildly atrophic. There is no evidence of infection, but his creatinine is significantly elevated from baseline. We discussed the proposed intervention of cystoscopy, left retrograde pyelogram and left ureteral stent insertion. We discussed the risks of this including bleeding, infection, injury to the urinary tract, need for additional procedures in the future, inability to place the stent. He expressed understanding would like to proceed. History of Present Illness Reason for Consultation: Obstructing UPJ stones with severe hydro, Acute renal failure Requesting Physician: Carolyne Byers - [facility] Attending Physician: Dr. Turner History of Present Illness 75 yo M with PMHx of CKD stage 3, PAF on anticoagulation, HTN, Dyslipidemia, and nephrolithiasis presented to the emergency department today with persistent left flank pain. Patient presented to [facility] ED on 03/27/21 with reports of hematuria occurring 12 days ago that resolved within a day, but has had persistent left flank pain since. He has been utilizing Ibuprofen for pain. Afebrile on arrival. Lab work independently reviewed and creatinine 6.85, WBC 13.05, Hgb 15.0. His baseline creatinine is around 1.5 per chart review. Urinalysis on admission showed trace leukocytes, 5-10 WBCs, 10-30 RBCs, and 10-20 Epithelials; negative for nitrates and bacteria. No urine culture pending. Covid testing negative. CTAP personally reviewed and notable for 3 calculi in proximal to mid left ureter measuring up to 11 mm with moderate to severe left hydroureteronephrosis; additional punctate nonobstructing left renal calculi. ED course included administration of IV fluids. He has been admitted by the hospitalist service. Our service is consulted for obstructing left ureteral stones. Patient seen and examined in ER today. He is awake, alert and resting in litter. Pain is currently tolerable. He has had intermittent left flank pain for 12 days. He is voiding without difficulty, no dysuria and no gross hematuria since 12 days ago. He notes that urine output has been lower than his normal, but he attributes to low PO intake over the past week. Feels he is emptying bladder. Mild nausea, no vomiting. No fever or chills. No chest pain or shortness of breath. He is NPO since last night. He is on Eliquis for PAF. Patient follows with [facility] urology. Hx of nephrolithiasis requiring lithotripsy and stent placement in the past. Last stone approx 2 years ago. Family hx of stones - brother; Prostate cancer - father. Offers no additional complaints at present. Allergies Allergy/AdvReac Type Severity Reaction Status Date / Time hydromorphone Allergy Severe POSSIBLE Verified 03/27/21 12:31 ANGIOEDEMA shellfish derived Allergy Severe CONCH-HIVES Verified 03/27/21 12:31 halothane Allergy Intermediate possible Verified 03/27/21 12:42 malignant hyperthermia ragweed pollen Allergy Intermediate SNEEZING, Verified 03/27/21 12:31 RUNNY NOSE succinylcholine Allergy Intermediate possible Verified 03/27/21 12:42 malignant hyperthermia house dust Allergy Mild SNEEZING, Verified 03/27/21 12:42 RUNNY NOSE Home Medications Medication Instructions Recorded Confirmed Type apixaban 5 mg tablet (Eliquis) 5 mg PO BID 03/27/21 03/27/21 History hydrochlorothiazide 25 mg tablet 25 mg PO QAM 03/27/21 03/27/21 History montelukast 10 mg tablet 10 mg PO HS 03/27/21 03/27/21 History pravastatin 40 mg tablet 40 mg PO HS 03/27/21 03/27/21 History sotalol 80 mg tablet (Sotalol AF) 80 mg PO BID 03/27/21 03/27/21 History Patient History Medical History CKD (chronic kidney disease) stage 3, GFR 30-59 ml/min Dyslipidemia History of asthma History of cardioversion "A fib to NSR, 2004" History of gastroesophageal reflux (GERD) History of renal stone HTN (hypertension) New onset atrial fibrillation Osteoarthritis of left hip PAF (paroxysmal atrial fibrillation) Surgical History History of appendectomy History of cataract surgery History of left hip replacement History of rotator cuff surgery History of tonsillectomy Family History Father Prostate cancer Mother Hypertension Social History Smoking Status: Never smoker Hx Alcohol Use: No Hx Substance Use: No Preferred Language: [place]an Communication Ability: Effective marital status: current 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 Feels Safe at Home: Yes Review of Systems Constitutional: as per Subjective / HPI Ear, Nose, Mouth, Throat: no problem reported Respiratory: no dyspnea Cardiovascular: no chest pain Gastrointestinal: as per Subjective / HPI Genitourinary: + as per Subjective / HPI Musculoskeletal: no problem reported Integumentary: no problem reported Neurologic: no problem reported Psychiatric: no problem reported Endocrine: no problem reported Physical Exam Constitutional: well developed and well nourished; no acute distress and not ill appearing Eyes: no scleral abnormality ENMT: mask in place Neck: normal visual inspection Respiratory: normal respiratory effort and able to speak in complete sentences; no respiratory distress and no labored breathing Cardiovascular: Extremities: no pedal edema Gastrointestinal (Abdomen): Inspection/Auscultation: abdomen normal to inspection; abdomen not distended Percussion/Palpation: abdomen soft; abdomen nontender and no guarding Musculoskeletal: Head/Neck/Chest: normocephalic and head atraumatic Skin: no visible rashes to exposed skin Neurologic: moves all extremities and awake Psychiatric: Orientation: alert, oriented x 3 and cooperative Eye Contact: good eye contact Genitourinary: no CVA tenderness Results & Data ([facility]) Vital Signs (Past 12 Hours) Vital Signs Temp Pulse Pulse Resp BP BP Pulse Ox 03/27/21 10:00 48 L 15 157/89 H 95 03/27/21 08:55 51 L 16 141/83 H 97 03/27/21 08:13 36.7 C 53 L 18 171/85 H [address] SCAN OF THE ABDOMEN AND PELVIS WITHOUT IV CONTRAST CLINICAL HISTORY: Left lower quadrant/flank pain. COMPARISON STUDY: Abdominal CT dated 07/05/2016. TECHNIQUE: CT scan of the abdomen and pelvis is performed from the lung bases to the proximal femora. Images are reviewed in the axial, sagittal, and coronal planes. IV contrast was not administered for this examination. A dose lowering technique was utilized adhering to the principles of ALARA. CT DOSE: 984.23 mGy.cm FINDINGS: Lung bases: The heart is normal in size and without pericardial effusion. The coronary arteries and aortic valve leaflets are densely calcified. There is a small hiatal hernia. The lung bases are clear. Liver: The unenhanced liver is normal in size, contour, and attenuation. There is no intrahepatic biliary ductal dilatation. Gallbladder: Contracted. Spleen: Normal in size and attenuation. Pancreas: The unenhanced pancreas is moderately atrophic and grossly unremarkable. Adrenal glands: Unremarkable. Kidneys: The unenhanced kidneys demonstrate mild cortical atrophy. The left kidney is edematous. There are 3 obstructing calculi in the proximal to mid left ureter at the level of L4-L5 which measure up to 11 mm. These are best seen on axial image #258 and cause moderate to severe left hydroureteronephrosis. There is associated left-sided perinephric stranding and fluid. There are least 4 additional punctate nonobstructing left renal calculi. No right renal calculi are seen. There is mild fullness of the right renal collecting system without hydronephrosis. Scattered renal cysts measure up to 3 cm. Abdominal vasculature: The abdominal aorta is normal in course and caliber noting moderate to advanced atherosclerotic calcification. Bowel: There is mild to moderate colonic diverticulosis without CT evidence of acute diverticulitis. No bowel obstruction is seen. Fecal retention is noted throughout the colon. The appendix is not identified and reported surgically absent. Peritoneum: There is no intraperitoneal free air or abdominal ascites. There is a large fat-containing umbilical hernia. There is asymmetric atrophy of the left iliopsoas musculature. Lymphadenopathy: None. Pelvic viscera: Evaluation of the pelvis is degraded by streak artifact from a left hip arthroplasty. The prostate gland is enlarged and heterogeneous noting median lobe hypertrophy. The bladder wall appears mildly thickened/trabeculated indicating chronic outlet obstruction. There are bilateral fat-containing inguinal hernias, right larger than left. Skeletal structures: The skeletal structures are osteopenic. There is moderate lumbosacral spondylosis. No lytic or blastic lesions are seen. A left hip arthroplasty is in place. There are healed left-sided rib fractures. IMPRESSION: 1. There are 3 obstructing calculi in the proximal to mid left ureter which m easure up to 11 mm. This causes moderate to severe left hydroureteronephrosis. 2. Additional punctate nonobstructing left renal calculi as above. 3. No right renal calculi are seen. 4. Prostatomegaly with evidence of chronic bladder outlet obstruction. 5. Colonic diverticulosis without CT evidence of acute diverticulitis. 6. Advanced coronary artery calcification. 7. Additional findings as above. PG Care Time/CCT Total # of Minutes Spent Total Time Spent with Patient: Total time spent is greater than 50% in coordination of care (as documented) at patient's floor/unit and/or counseling patient: Coding Level of Care Code 50847 Initial Inpt Care Lvl 2 Diagnoses Calculus of proximal left ureter N20.1 DONNY (acute kidney injury) N17.9 Hydronephrosis concurrent with and due to calculi of kidney and ureter N13.2
[2021-03-27] MEDS ORDERED: ceFAZolin 2000MG 2,000 MG/15 ML SYR IV ONE (12:16)
[2021-03-27] MEDS ORDERED: ACETAMINOPHEN 325 MG TAB PO PRN (12:23)
[2021-03-27] MEDS ORDERED: ALUMINUM/MAGNESIUM SUSP 30 ML UDC PO PRN (12:23)
[2021-03-27] MEDS ORDERED: MAGNESIUM HYDROXIDE SUSP 30 ML UDC PO PRN (12:23)
[2021-03-27] MEDS ORDERED: MoRPHine SULFATE 2 MG/ML CARP IV PRN (12:23)
[2021-03-27] MEDS ORDERED: MIDAZOLAM HCL 1 MG/ML 2ML VIAL ONE (12:23)
[2021-03-27] MEDS ORDERED: ONDANSETRON INJ 2 MG/ML 2 ML VIAL IV PRN ×2 (12:23→12:47)
[2021-03-27] MEDS ORDERED: POLYETHYLENE (MIRALAX) 17 GM PACK PO PRN (12:23)
[2021-03-27] MEDS ORDERED: ACETAMINOPHEN 1,000 MG/100 ML VIAL IV PRN (12:23)
[2021-03-27] MEDS ORDERED: fentaNYL citrate 100 MCG/2 ML VIAL ONE (12:25)
[2021-03-27] MEDS ORDERED: LIDOCAINE 2% 2 ML VIAL/AMP(20MG/ML) INFIL ONE (12:31)
[2021-03-27] MEDS ORDERED: ONDANSETRON INJ 2 MG/ML 2 ML VIAL ONE (12:31)
[2021-03-27] MEDS ORDERED: PROPOFOL IV EMULSION 10 MG/ML 20 ML VIAL IV ONE (12:31)
[2021-03-27] MEDS ORDERED: ePHEDrine sulfate 50 MG/ML AMP IV PRN (12:47)
[2021-03-27] MEDS ORDERED: fentaNYL citrate 100 MCG/2 ML VIAL IV PRN (12:47)
[2021-03-27] MEDS ORDERED: ATROPINE SULFATE 0.1 MG/ML 10ML SYR IV PRN (12:47)
--- NOTE | 2021-03-27 12:48 | Anesthesiology Consultation ---
Date of Service March 27, 2021 Assessment & Plan ASA ASA3 Proposed Anesthesia Anesthesia Type: General Risk / Benefits Reviewed With: PT / POA / Parent / Guardian, Accepts Plan and Informed Consent Obtained History Surgery Operation Date: 03/27/21 11:20 Proposed Procedures p Cystoscopy Left Stent Placement - David Lewis MD Height/Weight Height: 6 ft 2 in Weight: 105.7 kg Allergies Allergy/AdvReac Type Severity Reaction Status Date / Time hydromorphone Allergy Severe POSSIBLE Verified 03/27/21 12:31 ANGIOEDEMA shellfish derived Allergy Severe CONCH-HIVES Verified 03/27/21 12:31 halothane Allergy Intermediate possible Verified 03/27/21 12:42 malignant hyperthermia ragweed pollen Allergy Intermediate SNEEZING, Verified 03/27/21 12:31 RUNNY NOSE succinylcholine Allergy Intermediate possible Verified 03/27/21 12:42 malignant hyperthermia house dust Allergy Mild SNEEZING, Verified 03/27/21 12:42 RUNNY NOSE Medications Home Medications Medication Instructions Recorded Confirmed Last Taken apixaban 5 mg tablet (Eliquis) 5 mg PO BID 03/27/21 03/27/21 03/27/21 hydrochlorothiazide 25 mg tablet 25 mg PO QAM 03/27/21 03/27/21 03/27/21 montelukast 10 mg tablet 10 mg PO HS 03/27/21 03/27/21 03/26/21 pravastatin 40 mg tablet 40 mg PO HS 03/27/21 03/27/21 03/26/21 sotalol 80 mg tablet (Sotalol AF) 80 mg PO BID 03/27/21 03/27/21 03/27/21 NPO Date Last Intake of Fluids: 03/26/21 Time Last Intake of Fluids: 21:00 Last Intake of Fluids Comment: fluid sips with pills Date Last Intake of Solids: 03/26/21 Time Last Intake of Solids: 21:00 Past Medical History Medical History CKD (chronic kidney disease) stage 3, GFR 30-59 ml/min Dyslipidemia History of asthma History of cardioversion "A fib to NSR, 2004" History of gastroesophageal reflux (GERD) History of renal stone HTN (hypertension) New onset atrial fibrillation Osteoarthritis of left hip PAF (paroxysmal atrial fibrillation) Exercise / Class Metabolic Activity II 4-5 Yardwork/Stairs/Walk up hill Past Family History Family History Father Prostate cancer Mother Hypertension Past Surgical History Surgical History History of appendectomy History of cataract surgery History of left hip replacement History of rotator cuff surgery History of tonsillectomy Past Anesthesia History No Hx of Anesthesia Complications and No Family Hx of Anesthesia Complications History of PONV No Hx of PONV and No Hx of Motion Sickness Social History Smoking Status: Never smoker Hx Alcohol Use: No Hx Substance Use: No Review of Systems denies fever/cough/ colds/ chest pain/ SOB/ MELLISA denies MELLISA Physical Exam Vital Signs Last Vital Signs Temp 36.5 C 03/27/21 12:20 Pulse 52 L 03/27/21 12:20 Resp 18 03/27/21 12:20 BP 180/84 H 03/27/21 12:20 Pulse Ox 98 03/27/21 12:20 ENMT Mouth: no TMJ abnormality and no dentition abnormality Thyromental Distance: > or= 3.5 Finger Breadths Mallampati Class: II Neck neck extension not limited Respiratory normal respiratory effort; no respiratory distress Auscultation: lungs clear to auscultation bilaterally Cardiovascular Rate/Rhythm: regular rate and regular rhythm Neurologic moves all extremities Psychiatric Orientation: alert and oriented x 3 Testing Laboratory Results 03/27/21 08:52 03/27/21 08:52 Urine Color Yellow 03/27/21 09:14 Urine Appearance Clear (Clear) 03/27/21 09:14 Urine pH 5.0 (4.5-7.5) 03/27/21 09:14 Ur Specific [place] 1.013 (1.000-1.030) 03/27/21 09:14 Urine Protein Trace (Negative) H 03/27/21 09:14 Urine Glucose (UA) Negative (Negative) 03/27/21 09:14 Urine Ketones Negative (Negative) 03/27/21 09:14 Urine Nitrite Negative (Negative) 03/27/21 09:14 Ur Leukocyte Esterase Trace (Negative) H 03/27/21 09:14 Urine WBC (Auto) 5-10 /hpf (0-5) H 03/27/21 09:14 Urine RBC (Auto) 10-30 /hpf (0-4) H 03/27/21 09:14 U Hyaline Cast (Auto) 1-5 /lpf (0-5) 03/27/21 09:14 U Epithel Cells (Auto) 10-20 /lpf (0-5) H 03/27/21 09:14 Urine Bacteria (Auto) Negative (Negative) 03/27/21 09:14
[2021-03-27] MEDS ORDERED: ePHEDrine sulfate 50 MG/ML SYR ONE (13:17)
[2021-03-27] MEDS ORDERED: DIATRIZOATE MEGLUMINE 30% 100ML VIAL INSTIL ONE (13:25)
--- NOTE | 2021-03-27 13:40 | Operative Report ---
PG Post Operative Report Pre & Post Diagnosis Operation Date: 03/27/21 11:20 Pre-Op Diagnosis: Calculus of proximal left ureter Post-Op Diagnosis: Calculus of proximal left ureter I identified the patient and participated in the time-out.: Yes Procedure Operation Date: 03/27/21 11:20 Actual Procedures p Cystoscopy Left Stent Placement(Left), left retrograde pyelogram- David Lewis MD Surgeon David Lewis MD Medicaid Billing Clerk none Estimated Blood Loss 1 Findings See Below Successful left ureteral stent placement Specimens None Drains 6 Tongan by 26 cm double-J ureteral stent in the left ureter 20 Tongan Holland catheter per urethra Anesthesia Type General Complications none Disposition Disposition: Recovery Room Indications This is a 75-year-old male who presented to the ED on 03/27/2021 with left-sided obstructing stones in the ureter and an DONNY with creatinine of 6.85. His right kidney was somewhat atrophic on CT scan. He is being brought to the OR today for left ureteral stent placement for maximal urinary drainage. Description of Procedure The patient was identified in the holding area and informed consent was confirmed. They were marked on the left side, then were taken to the operating room where general anesthesia was initiated. They were placed in the dorsal lithotomy position with all pressure points appropriately padded. They were prepped and draped in the usual sterile fashion and a preoperative timeout was performed. A well-lubricated cystoscope was inserted per urethra and panendoscopy was performed. His pendulous urethra was normal with no strictures or mucosal abnormalities. His prostate was somewhat enlarged with the high bladder neck. The bladder was notably enlarged and trabeculated, consistent with longstanding outlet resistance. Ureteral orifices were in orthotopic position. The left ureteral orifice was identified and cannulated with a 5 Tongan open-en ded catheter. A retrograde pyelogram was performed demonstrating the distal ureter was normal in course and caliber. There is a transition point where there were filling defects, suspicious for the stone seen on CT scan. Proximal to this there was hydronephrosis in the proximal ureter and the kidney. A 0.038" ZIPwire was advanced to the level of the kidney under fluoroscopic guidance. Over the wire, a 6 Tongan x 26 centimeter double-J ureteral stent was advanced. When the wire was removed, the proximal curl was visualized in the kidney with x-ray, and the distal curl visualized in the bladder with the cystoscope. Given the signs of chronic outlet resistance, and his elevated creatinine, I elected to leave a Holland catheter for maximal drainage of the urinary tract. A 20 Tongan Holland catheter was placed without any resistance. The balloon was inflated with 10 mL of normal saline and the catheter was attached to gravity drainage. The patient was then awakened from anesthesia and was brought to the PACU in stable condition. I attest to the content of the Intraoperative Record and any orders documented therein. Any exceptions are noted below.
--- NOTE | 2021-03-27 14:10 | Anesthesiology Progress Note ---
Date of Service March 27, 2021 Anesthesia Post Procedure Vital Signs Vital Signs: Temp Pulse Pulse Resp BP BP Pulse Ox 03/27/21 14:05 36.4 C L 51 L 16 156/98 H 98 03/27/21 13:55 55 L 20 168/65 H 97 03/27/21 13:45 58 L 18 153/90 H 100 03/27/21 13:38 36.6 C 46 L 20 119/70 95 03/27/21 12:20 36.5 C 52 L 18 180/84 H 98 03/27/21 12:12 53 L 16 164/89 H 97 03/27/21 10:00 48 L 15 157/89 H 95 03/27/21 08:55 51 L 16 141/83 H 97 03/27/21 08:13 36.7 C 53 L 18 171/85 H 96 Pain Intensity Left Flank: Pain Intensity: 2 Penis: Pain Intensity: 4 Transfer of Care Handoff Completed per policy Notes Mental Status: alert / awake / arousable and participated in evaluation Patient Amnestic to Procedure: Yes Nausea / Vomiting: adequately controlled Pain: adequately controlled Airway Patency, RR, SpO2: stable & adequate BP & HR: stable & adequate Hydration State: stable & adequate Anesthetic Complications: no major complications apparent and Pt Satisfied with anesthetic care
--- NOTE | 2021-03-27 14:54 | Fluoroscopy Report ---
INTRAOPERATIVE RADIOGRAPH CLINICAL HISTORY: Left ureteral stent placement. Fluoroscopy time: 21 seconds. FINDINGS: A single spot fluoroscopic image of the left upper quadrant is correlated with abdominal CT dated 03/27/2021. The proximal end of a left ureteral stent projects over the left renal pelvis. IMPRESSION: Intraoperative image from a left ureteral stent placement as above. Electronically signed by: Yunior Blackwood M.D. 03/27/2021 2:53 PM
--- NOTE | 2021-03-27 17:04 | Electrocardiogram Report ---
Test Reason : Blood Pressure : / mmHG Vent. Rate : 049 BPM Atrial Rate : 049 BPM P-R Int : 206 ms QRS Dur : 138 ms QT Int : 520 ms P-R-T Axes : 019 -34 000 degrees QTc Int : 469 ms Sinus bradycardia Left axis deviation Right bundle branch block Abnormal ECG When compared with ECG of 08-JUL-2016 07:02, No significant change was found Confirmed by David Weiss ([id number]) on 03/27/2021 5:04:09 PM Referred By: REFERRED SELF Confirmed By:David Weiss
[2021-03-27] MEDS: TAMSULOSIN HCL 0.4 MG CAP PO SCH (18:06)
[2021-03-27] MEDS: SODIUM CHLORIDE 0.9% 1000ML 1,000 ML IV SCH (18:07)
[2021-03-27 19:14] LABS: Calcium 8.4 mg/dl (8.5-10.1); Creatinine Clr Calc Pharmacy 14.9 ml/min; Est GFR (African American) 10.7 ml/min; Est GFR (Non-African American) 9.3 ml/min; Potassium 4.1 mmol/L (3.5-5.1)
[2021-03-27] MEDS: SOTALOL HCL 80 MG TAB PO SCH (20:31)
[2021-03-27] MEDS ORDERED: APIXABAN 5 MG TABLET PO SCH (21:00)
[2021-03-27] MEDS ORDERED: PRAVASTATIN SOD 40 MG TAB PO SCH (21:00)
[2021-03-28] MEDS: SODIUM CHLORIDE 0.9% 1000ML 1,000 ML IV SCH ×3 (00:09→14:24)
[2021-03-28 06:27] LABS: Basophils # (auto) 0.07 K/uL (0-0.2); Basophils % (auto) 0.7 %; Eosinophils # (auto) 0.45 K/uL (0-0.5); Eosinophils % (auto) 4.5 %; Hemoglobin 14.6 g/dL (14.0-18.0); Immature Granulocytes # (auto) 0.04 K/uL (0.00-0.02); Immature Granulocytes % (auto) 0.4 %; Lymphocytes # (auto) 1.62 K/uL (1.2-3.4); Mean Corpuscular Hemoglobin 30.9 pg (25-34); Mean Corpuscular Volume 90.9 fL (80-100); Mean Platelet Volume 9.7 fL (7.4-10.4); Monocytes # (auto) 1.08 K/uL (0.11-0.59); Monocytes % (auto) 10.7 %; Neutrophils # (auto) 6.85 K/uL (1.4-6.5); Neutrophils % (auto) 67.7 %; Platelet Count 214 K/uL (130-400); RDW Coefficient of Variation 12.6 % (11.5-14.5); RDW Standard Deviation 42.2 fL (36.4-46.3); Red Blood Count 4.73 M/uL (4.7-6.1); White Blood Count 10.11 K/uL (4.8-10.8)
[2021-03-28 06:51] LABS: Albumin Globulin Ratio 0.9 (0.9-2); Albumin Level 3.2 gm/dl (3.4-5.0); BUN Creatinine Ratio 19.8 (10-20); Bilirubin,Total 0.4 mg/dl (0.2-1.0); Calcium 8.2 mg/dl (8.5-10.1); Creatinine Clr Calc Pharmacy 19.5 ml/min; Est GFR (African American) 14.8 ml/min; Est GFR (Non-African American) 12.8 ml/min; Globulin 3.4 gm/dl (2.5-4.0); Magnesium 1.7 mg/dl (1.7-2.4); Potassium 4.3 mmol/L (3.5-5.1); Total Protein 6.6 gm/dl (6.0-8.3)
--- NOTE | 2021-03-28 09:48 | Urology Progress Note ---
Date of Service March 28, 2021 Assessment & Plan (1) Calculus of proximal left ureter: Plan: Still has residual left-sided ureteral stones, but they are now bypassed with the left ureteral stent. His pain has improved significantly. We discussed options for further stone management including shockwave lithotripsy or ureteroscopy with laser lithotripsy. Due to his anticoagulation, he would not be a great candidate for shockwave lithotripsy. We discussed that he could be set up for ureteroscopy within the next couple weeks for definitive stone management. This can be done as an outpatient. (2) DONNY (acute kidney injury): Plan: DONNY is improving. There is no further evidence of obstruction of urinary tract. He has seen a agent broker in the past, and I recommended that he continue fo llow-up with them. Reasonable to continue to trend creatinine. I would defer to medicine as to what level they are comfortable discharging him at. (3) Enlarged prostate: Plan: Holland catheter was left in place at the end of the procedure due to enlarged prostate and risk for urinary retention after anesthesia. He is far enough out from surgery now that I think it is appropriate for catheter removal. Holland order has been discontinued. If he is unable to void, Holland can be replaced. Plan: Urology will sign off for now. Will arrange outpatient follow-up and definitive management of the left ureteral stones. Admission and Anticipated Discharge Date Admission Date: March 27, 2021 Subjective Patient reports he is feeling much better s/p left ureteral stent placement on 03/27/2021. Flank pain much improved Denies nausea or vomiting, tolerating a diet without any issues. Has been up and ambulating Holland catheter in place, uncomfortable and he is ready for to be removed. Labs reviewed: Creatinine is improving, down to 4.24 this morning. Review of Systems Constitutional: No fevers or chills Gastrointestinal: No nausea or vomiting Physical Exam Physical Exam: Well-appearing, NAD Respiratory: Breathing comfortably on room air Gastrointestinal (Abdomen): Abdomen soft, nondistended Genitourinary: Holland catheter in good position, draining pink-tinged urine, no clots in the bag. Results & Data ([facility]) Vital Signs (Past 12 Hours) Vital Signs Temp Pulse Resp BP Pulse Ox 03/28/21 07:10 36.8 C 50 L 18 157/65 H 95 03/27/21 23:12 37.2 C 52 L 18 157/77 H 97 PG Care Time/CCT Total # of Minutes Spent Total Time Spent with Patient: Total time spent is greater than 50% in coordination of care (as documented) at patient's floor/unit and/or counseling patient: Coding Level of Care Code 55825 Subseq Hosp Care Lvl 1 Diagnoses Calculus of proximal left ureter N20.1 DONNY (acute kidney injury) N17.9 Enlarged prostate N40.0
[2021-03-28] MEDS: TAMSULOSIN HCL 0.4 MG CAP PO SCH (10:22)
[2021-03-28] MEDS: SOTALOL HCL 80 MG TAB PO SCH (10:22)
--- NOTE | 2021-03-28 14:29 | Discharge Summary ---
Date of Service March 28, 2021 Admission HPI Per Admitting Provider This is a 75 yr old M who has a significant PMH of PAF on eliquis, HTN, HLD, allergic rhinitis, ckd 3 who presents to ED due to L flank pain and hematuria x 12 days. Approximately 12 days ago he noted significant amount of hematuria in urine. After 12 hours this resolved. He further developed left flank pain as well as generalized abdominal pain. Pain eventually would localize to left upper and left lower quadrant. He was taking [id number] ibuprofen 4-6 times a day with relief. Pain was located in left flank and would radiate to left upper abdomen. He described pain as an ache. "It was not that painful, and therefore I thought this was nothing major." He further complained of feeling chilled, weak and overall poor appetite. He has had significant decrease in oral intake as well as liquids. He has noticed decrease in urination but feels this is secondary to lack of oral intake. He denies any dysuria or further hematuria. He denies documented fever, lightheadedness, dizziness, chest pain, shortness of breath, cough, URI symptoms, melena or hematochezia. He does take Eliquis for A. fib and his last dose was this morning. He has not had nothing to eat or drink yet this morning. He does have a prior history of kidney stones requiring lithotripsy. He admits to being very active at baseline. Despite recent illness he feels he is able to ambulate a flight of stairs without any chest pain or shortness of breath. He feels cardiovascularly he is in, "good shape." In ED he remained hemodynamically stable w/o signs of sx of sepsis. He was found to have mild leukocytosis with WBC 13 K, acute renal failure with BUN 105, creatinine 6.[address] abdomen pelvis with 3 obstructing calculi in the proximal to mid left ureter measuring up to 11 mm. This is causing moderate to severe left hydronephrosis. In ED he received IV fluids. Principal Diagnosis Left obstructing ureteral stones Mod-severe hydronephrosis DONNY on CKD stage 3 Poorly controlled HTN Discharge Exam Patient was standing next to his bed, walking around the room. Patient is requesting to be discharge, "I can not stay here another night" He appears well. No acute distress. Reports no difficulty with urinating. Reports urine is cool-aid color. Denies flank pain. Reports chronic right shoulder pain Discharge Data Allergies Allergy/AdvReac Type Severity Reaction Status Date / Time hydromorphone Allergy Severe POSSIBLE Verified 03/27/21 12:31 ANGIOEDEMA shellfish derived Allergy Severe CONCH-HIVES Verified 03/27/21 12:31 halothane Allergy Intermediate possible Verified 03/27/21 12:42 malignant hyperthermia ragweed pollen Allergy Intermediate SNEEZING, Verified 03/27/21 12:31 RUNNY NOSE succinylcholine Allergy Intermediate possible Verified 03/27/21 12:42 malignant hyperthermia house dust Allergy Mild SNEEZING, Verified 03/27/21 12:42 RUNNY NOSE Consultations 03/27/21 10:04 ED Decision to Admit Stat 03/27/21 10:04 Consult Urology Routine Procedures Performed Operation Date: 03/27/21 11:20 Actual Procedures p Cystoscopy Left Stent Placement(Left) - David Lewis MD Ordered Studies 03/27/21 08:39 CT abd pelvis wo con Stat 03/27/21 12:30 FL retrograde includes kub Routine Hospital Course Left obstructing ureteral stones Mod-severe hydronephrosis -s/p stent, will need to follow up with Urology outpatient to determine definitive treatment -willingham discontinued today, patient with no difficulty voiding -continue flomax at discharge DONNY on CKD stage 3 -Cr 6.8 on admission improved to 4.2 today. -Ideally he should remain in the hospital for an additional day on IVF and repeat BMP tomorrow. However, patient is opposed to this plan and strongly prefers to return home. He was educated to stay hydrated and drink plenty of fluids. He was also instructed to avoid NSAIDs (motrin, ibuprofen, naproxen, advil, etc) and instead can use acetaminophen for pain -He was instructed to follow up with his PCP on Tuesday and arrange for a repeat BMP in 3 days Poorly controlled HTN -BP above goal -home HCTZ will be discontinued due to DONNY. Start amlodipine 5mg daily. Patient will follow up with his PCP for further management Total Time Total Time Spent Total Time Spent (In Minutes): 35 Discharge Plan Discharge Items Patient Disposition: Home - Self-Care Reason For Visit: L URETER STONE, SEVERHYDRONEPHROSIS, ACUTE RENAL F Discharge Diagnosis: Multiple left obstructing ureteral stones Moderate to severe hydronephrosis DONNY on CKD stage 3 Condition on Discharge: Fair Activity: Resume your previous activity Lifting: Gradually increase as tolerated Exercise/Sports: Wait until after follow-up appointment Driving/Machine Use: Resume 3 days after discharge Weightbearing: Full weightbearing Non-emergency contact: Primary Care Provider and Urologist Call non-emergency contact if: you have any medication questions, your symptoms worsen and your pain is not controlled Follow-up/Referrals: Tayo De La Fuente MD [Primary Care Provider] - Diet: Heart Healthy Addtl Attending Provider Instructions: You have 3 obstructing kidney stones on the left You had a stent placed 03/27. Please follow up with your Urologist for further management You can resume your Eliquis tonight (03/28). If you have worsening bleeding, please stop your Eliquis and call your doctor You should STOP your Hydrochlorothiazide. For blood pressure, you were started on amlodipine 5mg daily. Please follow up with your PCP for management of your blood pressure You should NOT take motrin, ibuprofen, Advil or other NSAIDs which can affect your kidneys You need a repeat BMP (basic metabolic panel) in 2-3 days. Drink plenty of fluids to stay hydrated Pending Studies at Discharge: No Stand-Alone Forms: [facility], Smoking Cessation Medications and DC Order Prescriptions: New tamsulosin 0.4 mg Capsule 0.4 mg PO QAM Qty: 30 RF: 0 amlodipine 5 mg tablet 5 mg PO DAILY Qty: 30 RF: 0 acetaminophen 325 mg Tablet 650 mg PO Q6H PRN (Reason: pain) Qty: 30 RF: 0 lidocaine [Lidoderm] 5 % adhesive patch,medicated 1 patch topical DAILY Qty: 15 RF: 0 Continued pravastatin 40 mg tablet 40 mg PO HS RF: 0 sotalol [Sotalol AF] 80 mg tablet 80 mg PO BID RF: 0 montelukast 10 mg tablet 10 mg PO HS RF: 0 Eliquis 5 mg tablet 5 mg PO BID RF: 0 Discontinued hydrochlorothiazide 25 mg tablet 25 mg PO QAM RF: 0 Discharge Orders: Discharge Order (Routine); Ordered 03/28/21 Ordered By: Leilani Corrales/Other Patient Handouts: Identifying Kidney Stones, Acute Kidney Failure Dc, Hypertension Dc, Benign Prostatic Hyperplasia Admission Data Admit Date/Time: 03/27/21 10:04 Attending Provider: Leilani Macdonald Admit Provider: Kong Turner Primary Care Provider: Tayo De La Fuente Other Providers: Kong Turner ; David Lewis
== END 2021-03-28 14:59 | disposition home or self-care (01) | DRG 661 ==
LOC: ED 08:07 → SUATTDRO 10:04 → EDINP 10:04 → PACUINP 14:39 → 3N 15:29